=== PATIENT | female | born 1975 | race African-American/Black ===

== ENCOUNTER 2020-12-29 17:54 | Emergency (ER) | payer OTHER ==
[2020-12-29] MEDS ORDERED: MAGNES/ALUMIN/SIMET 30ML UCUP ONE (20:45)
[2020-12-29] MEDS ORDERED: LIDOCAINE VISCOUS 2% SOLN 15 ML UDC ONE (20:46)
[2020-12-29 21:02] LABS: Absolute Lymphocytes (CBC) 3.8 K/uL (0.7-4.9); Basophils % 1.2 % (0-1.3); Hematocrit 41.8 % (36.0-45.0); Lymphocytes % 42.6 % (15.3-44.8); MPV 7.8 fL (7.6-11.3); RBC Red Blood Cell Count 4.86 M/uL (3.86-4.86)
[2020-12-29 21:03] LABS: Protime INR 0.98
[2020-12-29 21:17] LABS: BUN Blood Urea Nitrogen 15 mg/dL (7-18); Bicarbonate 29 mmol/L (21-32); Glucose Level 87 mg/dL (74-106); NT PRO-BNP 11 pg/mL (<125); Potassium 3.6 mmol/L (3.5-5.1); Sodium Level 138 mmol/L (136-145); Troponin (Emerg Dept Use Only) < 0.02 ng/mL (0.0-0.045)
--- NOTE | 2020-12-29 23:08 | ER ---
Nurse's Notes [facility] Name: Keya Rene Age: 45 yrs Sex: Female : 1975 Arrival Date: 12/29/2020 Time: 17:55 Bed 4 Private MD: Diagnosis: Chest pain, unspecified Presentation: 12/29 18:11 Chief complaint: Patient states: Chest pain started this morning. Intermittent, non ca1 radiating. Reports nausea and SOB with chest pains. Coronavirus screen: Client denies travel out of the [place] in the last 14 days. nausea, shortness of breath, Client presents with at least one sign or symptom that may indicate coronavirus-19. Standard/surgical mask placed on the client. Provider contacted for isolation considerations. Ebola Screen: Patient negative for fever greater than or equal to 101.5 degrees Fahrenheit, and additional compatible Ebola Virus Disease symptoms Patient denies exposure to infectious person. Patient denies travel to an Ebola-affected area in the 21 days before illness onset. No symptoms or risks identified at this time. Initial Sepsis Screen: Does the patient meet any 2 criteria? No. Patient's initial sepsis screen is negative. Does the patient have a suspected source of infection? No. Patient's initial sepsis screen is negative. Risk Assessment: Do you want to hurt yourself or someone else? Patient reports no desire to harm self or others. Onset of symptoms was December 29, 2020. 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 - Social history:: Smoking status: Patient/guardian denies using tobacco, Stopped _ months ago 3. - Family history:: not pertinent. - Hospitalizations: : No recent hospitalization is reported. Screenin:52 Abuse screen: Denies threats or abuse. Nutritional screening: No deficits noted. ea Tuberculosis screening: No symptoms or risk factors identified. Fall Risk IV access (20 points). Assessment: 21:04 General: Appears in no apparent distress. Behavior is calm, cooperative. Pain: ea Complains of pain in mid-sternal area Pain does not radiate. Cardiovascular: Patient's skin is warm and dry. Respiratory: Airway is patent Respiratory effort is even, unlabored, Respiratory pattern is regular, symmetrical. Derm: Skin is pink, warm \T\ dry. 22:06 Reassessment: Patient and/or family updated on plan of care and expected duration. Pain ea level reassessed. Patient is alert, oriented x 3, equal unlabored respirations, skin warm/dry/pink. 23:06 Reassessment: Patient and/or family updated on plan of care and expected duration. Pain ea level reassessed. Patient is alert, oriented x 3, equal unlabored respirations, skin warm/dry/pink. 23:21 Reassessment: Patient and/or family updated on plan of care and expected duration. Pain ea level reassessed. Patient is alert, oriented x 3, equal unlabored respirations, skin warm/dry/pink. Discharge instruction given to patient verbalized the understanding of instruction. Pt left ED ambulatory tolerating well. Vital Signs: 18:11 BP 139 / 97; Pulse 79; Resp 18 S; Temp 98.5(TE); Pulse Ox 100% on R/A; Weight 72.57 kg ca1 (R); Height 5 ft. 4 in. (162.56 cm) (R); Pain 7/10; 19:00 BP 124 / 93; Pulse 83; Resp 20; Pulse Ox 100% ; sp 20:53 BP 131 / 93; Pulse 74; Resp 19; Pulse Ox 100% on R/A; ea 21:00 BP 128 / 95; Pulse 64; Resp 18; Pulse Ox 98% ; ea 23:06 BP 120 / 93; Pulse 64; Resp 18; Pulse Ox 100% on R/A; ea 18:11 Body Mass Index 27.46 (72.57 kg, 162.56 cm) ca1 ED Course: 17:55 Patient arrived in ED. ag5 18:13 Triage completed. ca1 18:14 Arm band placed on right wrist. EKG completed in triage. Results shown to MD. ca1 20:14 Bhavik Gould, RN is Primary Nurse. rr5 20:14 Kofi Cherry MD is Attending Physician. rn 20:52 Patient has correct armband on for positive identification. Bed in low position. Call ea light in reach. Side rails up X2. kiln cleaner on. Pulse ox on. NIBP on. 20:52 Inserted saline lock: 20 gauge in right antecubital area, using aseptic technique. ea Blood collected. Patient maintains SpO2 saturation greater than 95% on room air. 21:52 XRAY Chest (1 view) In Process Unspecified. EDMS 22:34 CT Aorta for Dissection In Process Unspecified. EDMS 23:21 No provider procedures requiring assistance completed. IV discontinued, intact, ea bleeding controlled, No redness/swelling at site. Pressure dressing applied. Administered Medications: 20:52 Drug: GI Cocktail without - (Maalox Suspension 30 ml, Lidocaine Liquid 2 % 15 ea ml) Route: PO; 23:05 Follow up: Response: No adverse reaction ea Outcome: 23:07 Discharge ordered by . rn 23:21 Discharged to home ambulatory. ea 23:21 Condition: stable 23:21 Discharge instructions given to patient, Instructed on discharge instructions, follow up and referral plans. Demonstrated understanding of instructions, follow-up care. 23:22 Patient left the ED. ea Signatures: Dispatcher [employer] EDMS Sabina Yap Roman, MD MD rn Antunez, Elena, RN RN ea Roque, Raymond, RN RN rr5 Nataly Bess RN Kassidy Leggett ag5
--- NOTE | 2020-12-29 23:08 | EDPHYS ---
Physician Documentation [facility] Name: Keya Rene Age: 45 yrs Sex: Female : 1975 Arrival Date: 12/29/2020 Time: 17:55 Bed 4 Private MD: ED Physician Kofi Cherry HPI: 12/29 20:34 This 45 yrs old Black Female presents to ER via Ambulatory with complaints of Chest rn Pain. 20:34 The patient or guardian reports chest pain that is located primarily in the mid-sternal rn area. Onset: this morning. The pain radiates to the right shoulder. Associated signs and symptoms: Pertinent positives: None. Pertinent negatives: abdominal pain, cough, headache, lightheadedness, near syncope, palpitations, shortness of breath, syncope, vomiting. The chest pain is described as aching. Duration: The patient or guardian reports multiple episodes, that are intermittent. Modifying factors: The symptoms are alleviated by nothing. the symptoms are aggravated by movement. Severity of pain: At its worst the pain was mild in the emergency department the pain has improved. The patient has not experienced similar symptoms in the past. The patient has not recently seen a physician. Reports chest pain, mid/upper, assoc with right shoulder pain, worse when "doing things", no fever/cough/sob/recent illness. No abd pain/nausea/vomiting. Reports short episodes. Intermittent. Missed her BP meds at 1800. . 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 - Social history:: Smoking status: Patient/guardian denies using tobacco, Stopped _ months ago 3. - Family history:: not pertinent. - Hospitalizations: : No recent hospitalization is reported. ROS: 20:34 Constitutional: Negative for fever, chills, and weight loss, Eyes: Negative for injury, rn pain, redness, and discharge, Neck: Negative for injury, and swelling, Cardiovascular: Negative for palpitations, and edema, Respiratory: Negative for shortness of breath, cough, wheezing, and pleuritic chest pain, Abdomen/GI: Negative for abdominal pain, nausea, vomiting, diarrhea, and constipation, Back: Negative for injury MS/Extremity: Negative for injury and deformity, Skin: Negative for injury, rash, and discoloration, Neuro: Negative for headache, weakness, numbness, tingling, and seizure. Exam: 20:34 Constitutional: This is a well developed, well nourished patient who is awake, alert, rn and in no acute distress. Head/Face: Normocephalic, atraumatic. Eyes: Pupils equal round and reactive to light, extra-ocular motions intact. Periorbital areas with no swelling, redness, or edema. Neck: Trachea midline, no masses palpated Chest/axilla: Normal chest wall appearance and motion. Nontender with no deformity. No lesions are appreciated. Cardiovascular: Regular rate and rhythm. No pulse deficits. Respiratory: No increased work of breathing, no retractions or nasal flaring. Abdomen/GI: soft, non-tender, neg sun Skin: Warm, dry MS/ Extremity: Pulses equal, no cyanosis. Neurovascular intact. Full, normal range of motion. Equal circumference. Neuro: Awake and alert, GCS 15, oriented to person, place, time, and situation. Cranial nerves II-XII grossly intact. Motor strength 5/5 in all extremities. Sensory grossly intact. Vital Signs: 18:11 BP 139 / 97; Pulse 79; Resp 18 S; Temp 98.5(TE); Pulse Ox 100% on R/A; Weight 72.57 kg ca1 (R); Height 5 ft. 4 in. (162.56 cm) (R); Pain 7/10; 19:00 BP 124 / 93; Pulse 83; Resp 20; Pulse Ox 100% ; sp 20:53 BP 131 / 93; Pulse 74; Resp 19; Pulse Ox 100% on R/A; ea 21:00 BP 128 / 95; Pulse 64; Resp 18; Pulse Ox 98% ; ea 23:06 BP 120 / 93; Pulse 64; Resp 18; Pulse Ox 100% on R/A; ea 18:11 Body Mass Index 27.46 (72.57 kg, 162.56 cm) ca1 MDM: 20:14 Patient medically screened. rn 22:03 ED course: Chest pain nearly resolved after GI cocktail, so far rest of bloodwork rn normal, will repeat trop and get ct aorta given persistent hypertension and radiation to right shoulder. . 23:05 Differential diagnosis: acute myocardial infarction, acute pericarditis, coronary rn artery disease chest wall pain, costochondritis, esophagitis, gastritis, gastroesophageal reflux disease (GERD), pleurisy, pneumonia, pneumothorax, thoracic aortic disection. Data reviewed: vital signs, nurses notes, lab test result(s), EKG, radiologic studies, CT scan, plain films, and as a result, I will discharge patient. Counseling: I had a detailed discussion with the patient and/or guardian regarding: the historical points, exam findings, and any diagnostic results supporting the discharge/admit diagnosis, lab results, radiology results, the need for outpatient follow up, to return to the emergency department if symptoms worsen or persist or if there are any questions or concerns that arise at home. 23:06 Special discussion: Based on the patient's history, exam, and Dx evaluation, there is rn no indication for emergent intervention or inpatient Tx. It is understood by the patient/guardian that if the Sx's persist or worsen they need to return immediately for re-evaluation. I discussed with the patient/guardian in detail that at this point there is no indication for admission to the hospital. It is understood, however, that if the symptoms persist or worsen the patient needs to return immediately for re-evaluation. ED course: CT aorta negative, repeat trop neg, ecg without ischemia, pain improved markedly with GI cocktail, will dc home with return precautions and pcp f/u. Also recommend outpt stress test and cardiology f/u as needed if symptoms continue.. 12/29 20:55 Order name: Basic Metabolic Panel; Complete Time: 21:45 EDMS 12/29 20:24 Order name: XRAY Chest (1 view) rn 12/29 20:55 Order name: Troponin (Emerg Dept Use Only); Complete Time: 21:45 EDMS 12/29 20:55 Order name: NT PRO-BNP; Complete Time: 21:45 EDMS 12/29 20:55 Order name: CBC with Automated Diff; Complete Time: 21:45 EDMS 12/29 20:55 Order name: Protime (+INR); Complete Time: 21:45 EDMS 12/29 22:02 Order name: CT Aorta for Dissection rn 12/29 22:02 Order name: Troponin (emerg Dept Use Only); Complete Time: 23:03 rn 12/29 18:15 Order name: EKG; Complete Time: 18:16 ca1 12/29 18:15 Order name: EKG - Nurse/Tech; Complete Time: 18:17 ca1 12/29 20:24 Order name: Cardiac monitoring; Complete Time: 20:52 rn 12/29 20:24 Order name: IV Saline Lock; Complete Time: 20:52 rn 12/29 20:24 Order name: Labs collected and sent; Complete Time: 20:52 rn 12/29 20:24 Order name: O2 Per Protocol; Complete Time: 20:43 rn 12/29 20:24 Order name: O2 Sat Monitoring; Complete Time: 20:43 rn Administered Medications: 20:52 Drug: GI Cocktail without - (Maalox Suspension 30 ml, Lidocaine Liquid 2 % 15 ea ml) Route: PO; 23:05 Follow up: Response: No adverse reaction ea Disposition: 12/29/20 23:07 Discharged to Home. Impression: Chest pain, unspecified. - Condition is Stable. - Discharge Instructions: Nonspecific Chest Pain. - Medication Reconciliation Form, Thank You Letter, Antibiotic Education, Prescription Opioid Use form. - Follow up: Private Physician; When: As needed; Reason: Recheck today's complaints, Re-evaluation by your physician. - Problem is new. - Symptoms have improved. Signatures: Dispatcher [employer] EDMS Kofi Cherry MD MD rn Antunez, Elena RN Nataly Chiu ea RN RN ca1 Corrections: (The following items were deleted from the chart) 21:50 21:19 PROTIME (+INR)+COAG.LAB.BRZ ordered. EDMS EDMS 21:52 21:19 BASIC METABOLIC PANEL+C.LAB.BRZ ordered. EDMS EDMS 21:52 21:19 CBC+H.LAB.BRZ ordered. EDMS EDMS 21:52 21:19 PROBNP+C.LAB.BRZ ordered. EDAZ EDMS 21:52 21:19 TROPONIN (EMERG DEPT USE ONLY)+C.LAB.BRZ ordered. EDAZ EDMS 23:22 23:07 12/29/2020 23:07 Discharged to Home. Impression: Chest pain, unspecified. ea Condition is Stable. Forms are Medication Reconciliation Form, Thank You Letter, Antibiotic Education, Prescription Opioid Use. Follow up: Private Physician; When: As needed; Reason: Recheck today's complaints, Re-evaluation by your physician. Problem is new. Symptoms have improved. rn
[2020-12-30 03:19] VITALS: TEMP 98.5
[2020-12-30 03:24] VITALS: BP 120/93; O2SAT 100
--- NOTE | 2020-12-30 12:55 | EKG ---
Test Date: 2020-12-29 Test Time: 18:18:29 Procurement Specialist: LAUREN MEASUREMENT RESULTS: Intervals: Rate: 84 MO: 160 QRSD: 86 QT: 376 QTc: 444 [place]: P: 68 MO: 160 QRS: 57 T: 41 INTERPRETIVE STATEMENTS: Normal sinus rhythm Normal ECG No previous ECG available for comparison Electronically Signed On 12-30-20 12:53:15 HOSPITALITY HOUSEKEEPER by Jaguar Frankel
--- NOTE | 2020-12-30 16:15 | RAD REPORT ---
EXAM DESCRIPTION: CT Angiography Chest, Abdomen and Pelvis With Intravenous Contrast CLINICAL HISTORY: The patient is 45 years old and is Female; CHEST PAIN TECHNIQUE: Axial computed tomographic angiography images of the chest, abdomen and pelvis with intra venous contrast. Sagittal and coronal reformatted images were created and reviewed. This CT exam was performed using one or more of the following dose reduction techniques: automated exposure cont rol, adjustment of the mA and/or kV according to patient size, and/or use of iterative reconstruction technique. MIP reconstructed images were created and reviewed. COMPARISON: No relevant prior studies available. FINDINGS: VASCULATURE: Aorta: Minimal atheromatous plaque seen at the inferior abdominal aorta. No significant stenosis. No aortic aneurysm. No dissection. Pulmonary arteries: Unremarkable as visualized. No pulmonary embolism is identified. Great vessels of aortic arch: No acute findings. No dissection. No arterial occlusion or sign ificant stenosis. Celiac trunk and mesenteric arteries: No acute findings. No occlusion or significant stenosis. Renal arteries: No acute findings. No occlusion or significant stenosis. Iliac arteries: No acute findings. No occlusion or significant stenosis. CHEST: Lungs: Unremarkable. No mass. No consolidation. Pleural space: Unremarkable. No significant effusion. No pneumothorax. Heart: Unremarkable. No cardiomegaly. No significant pericardial effusion. ABDOMEN: Liver: Unremarkable. No mass. Gallbladder and bile ducts: Unremarkable. No calcified stones. No ductal dilation. Pancreas: Unremarkable. No ductal dilation. No mass. Spleen: Unremarkable. No splenomegaly. Adrenals: Unremarkable. No mass. Kidneys and ureters: Unremarkable. No hydronephrosis. No solid mass. Stomach and bowel: Unremarkable. No obstruction. No mucosal thickening. PELVIS: Appendix: No findings to suggest acute appendicitis. Bladder: Unremarkable. No mass. Reproductive: Unremarkable as visualized. CHEST, ABDOMEN and PELVIS: Intraperitoneal space: Unremarkable. No significant fluid collection. No free air. Bones/joints: No acute fracture. No dislocation. Soft tissues: Unremarkable. Lymph nodes: Unremarkable. No enlarged lymph nodes. IMPRESSION: 1. No acute vascular abnormality. No aortic dissection. 2. No acute findings seen within the chest, abdomen or pelvis. Electronically signed by: Kyle Hartman MD 12/29/2020 10:45 PM SSN/SSBN ASSISTANT NAVIGATOR Due to temporary technical issues with the PACS/Fluency reporting system, reports are being signed by the in house radiologists without review as a courtesy to insure prompt reporting. The interpreting radiologist is fully responsible for the content of the report.
--- NOTE | 2020-12-30 16:17 | RAD REPORT ---
EXAM DESCRIPTION: Chest Single View CLINICAL HISTORY: 5 years Female, CHEST PAIN COMPARISON: None FINDINGS/IMPRESSION: No focal lung consolidation. No pleural effusion. No pneumothorax. Cardiomediastinal silhouette is within normal limits. Mild vascular congestion and interstitial edema. No acute osseous abnormality. Electronically signed by: Dani Parmar DO 12/29/2020 10:03 PM DRAPERY ROD ASSEMBLER Due to temporary technical issues with the PACS/Fluency reporting system, reports are being signed by the in house radiologists without review as a courtesy to insure prompt reporting. The interpreting radiologist is fully responsible for the content of the report.
== END 2020-12-29 23:22 | disposition home or self-care (01) ==
LOC: ER 17:54
DX: R07.9 Chest pain, unspecified (principal)
CPT/HCPCS: 93005; 85025; 80048; 36415; 85610; 84484 ×2; 83880; 71275; 74175; 71045; 99285; Q9967

== ENCOUNTER 2021-05-31 17:50 | Emergency (ER) | payer OTHER ==
--- OUTSIDE RECORDS SUMMARY | 2021-05-31 17:58 | XMS REPORT | Continuity of Care Document ---
:1975 Author Organization [facility] t Address [address] [place] [address] Care Team Providers Name Role Phone Unavailable Unavailable Unavailable Payers Payer Name Policy Type Policy Number Effective Date Expiration Date S ource Problems This patient has no known problems. Allergies, Adverse Reactions, Alerts Allergy Allergy Status Severity Reaction(s) Onset Inactive Treating Comm ents Source Name Type Date Date Clinician No Known DA Active U 2017-1 [facility] 2-26 Clear s 00:00: Tobias 00 [facility] No Known DA Active U 2017-0 [facility] Allergie 6-04 Pearlan s 00:00: d 00 [facility] Medications This patient has no known medications. Procedures This patient has no known procedures. Encounters Start End Encounter Admission Attending Care Care Encounter Source Date/Time Date/Time Type Type Clinicians Facility Department ID 2020-03-11 2020-03-11 Emergency E [facility]BL [facility] [id number] [facility]BL 20:04:00 20:04:00 2020-03-11 2020-03-11 Emergency E [facility] 7504 [facility]BL 12:21:00 12:21:00 2020-02-05 2020-02-05 Emergency E [facility] [id number] [facility]BL 08:43:00 08:43:00 Results Test Description Test Time Test Comments Results Result Comments Source COVID 19 Asymptomatic IH AG 2020-06-03 04:50:00 Test Item Value Reference Range Interpretation Comme nts COVID 19 Asymptomatic IH AG NEGATIVE Negative Per mental retardation aide, negative (test code = COVNONPUIAG) re sults should be treated aspresumptive a nd, if inconsistent wi th clinical signs andsymptoms or necessary for patient managem ent, should betested with a n alternative molecular assay . Negative resultsdo not p reclude SARS-CoV-2 infection and s hould not be usedas the sole basis for patient management deci sions. Negative results should be considered in the context of apatient's recent exposures, hist ory, presence of clinicalsigns a nd symptoms consistent with COVID-19. - XR CHEST 2 [id number] 04:02:00 Name: MARYCRUZ RICHARD [place] : 1975 Age/S: 45 / F [id number] Unit #: [id number] Loc: [place] [address] Phys: Shimon Santamaria MD Acct: [id number] Dis Date: Status: REG ER PHONE #: [phone] Exam Date: 06/03/2020 035 FAX #: Reason: sob EXAMS: CPT: [id number] XR CHEST 2 V 00171 Fluoro Time: DAP (Gy m2): Air Kerma (mGy): EXAMINATION: - XR CHEST 2 V LOCATION: 1 INDICATION/CLINICAL HISTORY: sob COMPARISON: Chest x-ray 02/08/2019. TECHNIQUE: Frontal and lateral views of the chest. FINDINGS: Lines/device:None. Cardiomediastinal silhouette: Normal. Pulmonary vasculature: Not congested. Lungs/pleura: No consolidation, pneumothorax or pleural effusion. Upper abdomen: Unremarkable. Regional osseous structures: Intact. IMPRESSION: No acute cardiopulmonary findings. Electronica lly Signed by Luna Petersen on 06/03/2020 at 0402 Reported and signed by:Iqra Petersen M.D. CC: PAGE 1 Signed Report Name: MARYCRUZ RICHARD [place] : 1975 Age/S: 45 / F [address] Unit#: [id number] Loc: [place] [address] Phys: Shimon Santamaria MD Acct: [id number] Dis Date: Status: REG ER PHONE #: [phone] Exam Date: 06/03/2020 0355 FAX #: Reason: sob EXAMS: CPT: [id number] XR CHEST 2 V [id number] Fluoro Time: DAP (Gy m2): Air Kerma (mGy): <Continued> Technologist: Blayne Hu RT(R) Trnscb Date/Time: 06/03/2020 (401) [email or web address] Orig Print D/T: S: 06/03/2020 (404) PAGE 2 Signed ReportCBC W/AUTO [id number] 12:08:00 Test Item Value Reference Range Interpretation Comments WHITE BLOOD CELL (test code = 13.8 K/mm3 3.5-11.0 H WBC) RED BLOOD CELL (test code = RBC) 5.41 M/mm3 4.70-6.10 N HEMOGLOBIN (test code = HGB) 15.6 G/DL 10.4-14.9 H HEMATOCRIT (test code = HCT) 47.4 % 31.5-44.1 H MEAN CELL VOLUME (test code = 87.6 Fl 84.5-98.6 N MCV) MEAN CELL HGB (test code = MCH) 28.8 pg 27.0-34.2 N MEAN CELL HGB CONCETRATION (test 32.9 G/DL 31.5-34.0 N code = MCHC) RED CELL DISTRIBUTION WIDTH 14.6 SD 11.5-14.5 H (test code = RDW) PLATELET COUNT (test code = PLT) 324.0 K/mm3 150-450 N MEAN PLATELET VOLUME (test code 9.10 fL 7.0-10.5 N = MPV) MANUAL DIFF REQUIRED (test code YES DIFF/SCN CRITERIA = MDIFF) WBC [id number] 12:08:00 Test Item Value Reference Range Interpretation Comments SEGMENTED NEUTROPHILS (test code = SEG) 62 % 40-75 N BAND NEUTROPHIL (test code = BAND) 2 % 0-8 N LYMPHOCYTE (test code = LYMPH) 22 % 18.7-40.6 N ATYPICAL LYMPH (test code = ALYMPH) 4 % 0-0 H MONOCYTE (test code = MON) 10 % 3.8-11.4 N CBC W/AUTO [id number] 12:07:00 Test Item Value Reference Range Interpretation Comments WHITE BLOOD CELL (test code = 13.8 K/mm3 3.5-11.0 H WBC) RED BLOOD CELL (test code = RBC) 5.41 M/mm3 4.70-6.10 N HEMOGLOBIN (test code = HGB) 15.6 G/DL 10.4-14.9 H HEMATOCRIT (test code = HCT) 47.4 % 31.5-44.1 H MEAN CELL VOLUME (test code = 87.6 Fl 84.5-98.6 N MCV) MEAN CELL HGB (test code = MCH) 28.8 pg 27.0-34.2 N MEAN CELL HGB CONCETRATION (test 32.9 G/DL 31.5-34.0 N code = MCHC) RED CELL DISTRIBUTION WIDTH 14.6 SD 11.5-14.5 H (test code = RDW) PLATELET COUNT (test code = PLT) 324.0 K/mm3 150-450 N MEAN PLATELET VOLUME (test code 9.10 fL 7.0-10.5 N = MPV) MANUAL DIFF REQUIRED (test code YES DIFF/SCN CRITERIA = MDIFF) WBC [id number] 12:07:00 Test Item Value Reference Range Interpretation Comments SEGMENTED NEUTROPHILS (test code = SEG) % 40-75 LYMPHOCYTE (test code = LYMPH) % 18.7-40.6 CBC W/AUTO [id number] 12:07:00 Test Item Value Reference Range Interpretation Comments WHITE BLOOD CELL (test code = 13.8 K/mm3 3.5-11.0 H WBC) RED BLOOD CELL (test code = RBC) 5.41 M/mm3 4.70-6.10 N HEMOGLOBIN (test code = HGB) 15.6 G/DL 10.4-14.9 H HEMATOCRIT (test code = HCT) 47.4 % 31.5-44.1 H MEAN CELL VOLUME (test code = 87.6 Fl 84.5-98.6 N MCV) MEAN CELL HGB (test code = MCH) 28.8 pg 27.0-34.2 N MEAN CELL HGB CONCETRATION (test 32.9 G/DL 31.5-34.0 N code = MCHC) RED CELL DISTRIBUTION WIDTH 14.6 SD 11.5-14.5 H (test code = RDW) PLATELET COUNT (test code = PLT) 324.0 K/mm3 150-450 N MEAN PLATELET VOLUME (test code 9.10 fL 7.0-10.5 N = MPV) MANUAL DIFF REQUIRED (test code YES DIFF/SCN CRITERIA = MDIFF) WBC [id number] 12:07:00 Test Item Value Reference Range Interpretation Comments SEGMENTED NEUTROPHILS (test code = SEG) % 40-75 LYMPHOCYTE (test code = LYMPH) % 18.7-40.6 BASIC METABOLIC [id number] 08:34:00 Test Item Value Reference Range Interpretation Comments SODIUM (test code = NA) 136 mmol/L 134-147 N POTASSIUM (test code = 3.4 mmol/L 3.4-5.0 N K) CHLORIDE (test code = 101 mmol/L 100-108 N CL) CARBON DIOXIDE (test 27 mmol/L 21-32 N code = CO2) ANION GAP (test code = 8.0 GAP calc 4.0-15.0 N GAP) GLUCOSE (test code = 102 MG/DL 70-110 N GLU) BLOOD UREA NITROGEN 16 MG/DL 7-18 N (test code = BUN) GLOMERULAR FILTRATION >=60 max estimate >60 RATE (test code = GFR) estGFR CREATININE (test code = 0.8 MG/DL 0.6-1.0 N CREAT) CALCIUM (test code = CA) 8.9 MG/DL 8.5-10.1 N CBC W/AUTO [id number] 08:14:00 Test Item Value Reference Range Interpretation Comments WHITE BLOOD CELL (test code = 13.8 K/mm3 3.5-11.0 H WBC) RED BLOOD CELL (test code = RBC) 5.41 M/mm3 4.70-6.10 N HEMOGLOBIN (test code = HGB) 15.6 G/DL 10.4-14.9 H HEMATOCRIT (test code = HCT) 47.4 % 31.5-44.1 H MEAN CELL VOLUME (test code = 87.6 Fl 84.5-98.6 N MCV) MEAN CELL HGB (test code = MCH) 28.8 pg 27.0-34.2 N MEAN CELL HGB CONCETRATION (test 32.9 G/DL 31.5-34.0 N code = MCHC) RED CELL DISTRIBUTION WIDTH (test 14.6 SD 11.5-14.5 H code = RDW) PLATELET COUNT (test code = PLT) 324.0 K/mm3 150-450 N MEAN PLATELET VOLUME (test code = 9.10 fL 7.0-10.5 N MPV) NEUTROPHIL % (test code = NT%) % 40-76 N LYMPHOCYTE % (test code = LY%) % 20.5-51.1 N MONOCYTE % (test code = MO%) % 1.7-9.3 H EOSINOPHIL % (test code = EO%) % 0.0-6.0 N BASOPHIL % (test code = BA%) % 0.0-2.0 N NEUTROPHIL # (test code = NT#) K/mm3 1.8-7.6 H LYMPHOCYTE # (test code = LY#) K/mm3 0.6-3.2 N MONOCYTE # (test code = MO#) K/mm3 0.3-1.1 H EOSINOPHIL # (test code = EO#) K/mm3 0.0-0.4 N BASOPHIL # (test code = BA#) K/mm3 0.0-0.1 N MANUAL DIFF REQUIRED (test code = DIFF/SCN CRITERIA MDIFF) CBC W/AUTO [id number] 08:34:00 Test Item Value Reference Range Interpretation Comments WHITE BLOOD CELL (test code = 26.9 K/mm3 3.5-11.0 H WBC) RED BLOOD CELL (test code = RBC) 4.74 M/mm3 4.70-6.10 N HEMOGLOBIN (test code = HGB) 13.8 G/DL 10.4-14.9 N HEMATOCRIT (test code = HCT) 42.0 % 31.5-44.1 N MEAN CELL VOLUME (test code = 88.6 Fl 84.5-98.6 N MCV) MEAN CELL HGB (test code = MCH) 29.1 pg 27.0-34.2 N MEAN CELL HGB CONCETRATION (test 32.9 G/DL 31.5-34.0 N code = MCHC) RED CELL DISTRIBUTION WIDTH 14.7 SD 11.5-14.5 H (test code = RDW) PLATELET COUNT (test code = PLT) 289.0 K/mm3 150-450 N MEAN PLATELET VOLUME (test code 9.20 fL 7.0-10.5 N = MPV) MANUAL DIFF REQUIRED (test code YES DIFF/SCN CRITERIA = MDIFF) WBC [id number] 08:34:00 Test Item Value Reference Range Interpretation Comments SEGMENTED NEUTROPHILS (test code = SEG) % 40-75 LYMPHOCYTE (test code = LYMPH) % 18.7-40.6 CBC W/AUTO [id number] 08:34:00 Test Item Value Reference Range Interpretation Comments WHITE BLOOD CELL (test code = 26.9 K/mm3 3.5-11.0 H WBC) RED BLOOD CELL (test code = RBC) 4.74 M/mm3 4.70-6.10 N HEMOGLOBIN (test code = HGB) 13.8 G/DL 10.4-14.9 N HEMATOCRIT (test code = HCT) 42.0 % 31.5-44.1 N MEAN CELL VOLUME (test code = 88.6 Fl 84.5-98.6 N MCV) MEAN CELL HGB (test code = MCH) 29.1 pg 27.0-34.2 N MEAN CELL HGB CONCETRATION (test 32.9 G/DL 31.5-34.0 N code = MCHC) RED CELL DISTRIBUTION WIDTH 14.7 SD 11.5-14.5 H (test code = RDW) PLATELET COUNT (test code = PLT) 289.0 K/mm3 150-450 N MEAN PLATELET VOLUME (test code 9.20 fL 7.0-10.5 N = MPV) MANUAL DIFF REQUIRED (test code YES DIFF/SCN CRITERIA = MDIFF) WBC [id number] 08:34:00 Test Item Value Reference Range Interpretation Comments SEGMENTED NEUTROPHILS (test 88 % 40-75 H code = SEG) BAND NEUTROPHIL (test code 5 % 0-8 N = BAND) LYMPHOCYTE (test code = 6 % 18.7-40.6 L LYMPH) MONOCYTE (test code = MON) 1 % 3.8-11.4 L PLATELET ESTIMATE (test ADEQUATE THOUSAND ADEQUATE code = PLTEST) PLATELET MORPHOLOGY (test NORMAL code = PLTMORPH) CBC W/AUTO [id number] 08:34:00 Test Item Value Reference Range Interpretation Comments WHITE BLOOD CELL (test code = 26.9 K/mm3 3.5-11.0 H WBC) RED BLOOD CELL (test code = RBC) 4.74 M/mm3 4.70-6.10 N HEMOGLOBIN (test code = HGB) 13.8 G/DL 10.4-14.9 N HEMATOCRIT (test code = HCT) 42.0 % 31.5-44.1 N MEAN CELL VOLUME (test code = 88.6 Fl 84.5-98.6 N MCV) MEAN CELL HGB (test code = MCH) 29.1 pg 27.0-34.2 N MEAN CELL HGB CONCETRATION (test 32.9 G/DL 31.5-34.0 N code = MCHC) RED CELL DISTRIBUTION WIDTH 14.7 SD 11.5-14.5 H (test code = RDW) PLATELET COUNT (test code = PLT) 289.0 K/mm3 150-450 N MEAN PLATELET VOLUME (test code 9.20 fL 7.0-10.5 N = MPV) MANUAL DIFF REQUIRED (test code YES DIFF/SCN CRITERIA = MDIFF) WBC [id number] 08:34:00 Test Item Value Reference Range Interpretation Comments SEGMENTED NEUTROPHILS (test code = SEG) % 40-75 LYMPHOCYTE (test code = LYMPH) % 18.7-40.6 BASIC METABOLIC [id number] 06:23:00 Test Item Value Reference Range Interpretation Comments SODIUM (test code = NA) 138 mmol/L 134-147 N POTASSIUM (test code = 3.5 mmol/L 3.4-5.0 N K) CHLORIDE (test code = 105 mmol/L 100-108 N CL) CARBON DIOXIDE (test 24 mmol/L 21-32 N code = CO2) ANION GAP (test code = 9.0 GAP calc 4.0-15.0 N GAP) GLUCOSE (test code = 114 MG/DL 70-110 H GLU) BLOOD UREA NITROGEN 11 MG/DL 7-18 N (test code = BUN) GLOMERULAR FILTRATION >=60 max estimate >60 RATE (test code = GFR) estGFR CREATININE (test code = 0.7 MG/DL 0.6-1.0 N CREAT) CALCIUM (test code = CA) 8.8 MG/DL 8.5-10.1 N CBC W/AUTO [id number] 05:59:00 Test Item Value Reference Range Interpretation Comments WHITE BLOOD CELL (test code = 26.9 K/mm3 3.5-11.0 H WBC) RED BLOOD CELL (test code = RBC) 4.74 M/mm3 4.70-6.10 N HEMOGLOBIN (test code = HGB) 13.8 G/DL 10.4-14.9 N HEMATOCRIT (test code = HCT) 42.0 % 31.5-44.1 N MEAN CELL VOLUME (test code = 88.6 Fl 84.5-98.6 N MCV) MEAN CELL HGB (test code = MCH) 29.1 pg 27.0-34.2 N MEAN CELL HGB CONCETRATION (test 32.9 G/DL 31.5-34.0 N code = MCHC) RED CELL DISTRIBUTION WIDTH (test 14.7 SD 11.5-14.5 H code = RDW) PLATELET COUNT (test code = PLT) 289.0 K/mm3 150-450 N MEAN PLATELET VOLUME (test code = 9.20 fL 7.0-10.5 N MPV) NEUTROPHIL % (test code = NT%) % 40-76 H LYMPHOCYTE % (test code = LY%) % 20.5-51.1 L MONOCYTE % (test code = MO%) % 1.7-9.3 N EOSINOPHIL % (test code = EO%) % 0.0-6.0 N BASOPHIL % (test code = BA%) % 0.0-2.0 N NEUTROPHIL # (test code = NT#) K/mm3 1.8-7.6 H LYMPHOCYTE # (test code = LY#) K/mm3 0.6-3.2 N MONOCYTE # (test code = MO#) K/mm3 0.3-1.1 H EOSINOPHIL # (test code = EO#) K/mm3 0.0-0.4 N BASOPHIL # (test code = BA#) K/mm3 0.0-0.1 N MANUAL DIFF REQUIRED (test code = DIFF/SCN CRITERIA MDIFF) - XR CHEST 1 [id number] 12:33:00 Name: MARYCRUZ RICHARD [facility] : 1975 Age/S: 43 / F [address] Unit #: [id number] Loc: [place] [address] Phys: Lei Fairchild MD Acct: [id number] Dis Date: Status: ADM IN PHONE #: [phone] Exam Date: 02/08/2019 1214 FAX #: Reason: SOB EXAMS: CPT: [id number] XR CHEST 1 V 79811 Fluoro Time: DAP (Gy m2): Air Kerma (mGy): C3 TIME OF STUDY: 02/08/2019 10:59 AM REASON FOR EXAM: SOB COMPARISON: February 07, 2019 FINDINGS: AP view of the chest was obtained. Lungs: Relatively unchanged appearance of small right basilar opacity. Pleura: No pleural effusion or pneumothorax. Heart and Mediastinum: Normal cardiomediastinal silhouette and great vessels. Bones: Normal regional skeletal structures. IMPRESSION: 1. Small right basilar opacity, unchanged. at 1233 Reported and signed by: Ronnie Mathis M.D. CC: Brea Coburn MD; Lei Fairchild MD; Addison Durham MD PAGE 1 Signed Report Name: MARYCRUZ RICHARD : 1975 Age/S: 43 / F [address] Unit #: [id number] Loc: [place] [address] Phys: Lei Fairchild MD Acct: [id number] Dis Date: Status: ADM IN PHONE #: [phone] Exam Date: 02/08/2019 1214 FAX #: Reason: SOB EXAMS: CPT: [id number] XR CHEST 1 V [id number] Fluoro Time: DAP (Gy m2): Air Kerma (mGy): <Continued> Technologist: Solomon Kothari, RT(R)(CT) Trnscb Date/Time: 02/08/2019 (1233) [email or web address] Orig Print D/T: S: 02/08/2019 (2068) PAGE 2 Signed ReportCBC W/AUTO [id number] 08:15:00 Test Item Value Reference Range Interpretation Comments WHITE BLOOD CELL (test 27.7 K/mm3 3.5-11.0 H code = WBC) RED BLOOD CELL (test 4.36 M/mm3 4.70-6.10 L code = RBC) HEMOGLOBIN (test code 13.0 G/DL 10.4-14.9 N = HGB) HEMATOCRIT (test code 38.5 % 31.5-44.1 N = HCT) MEAN CELL VOLUME (test 88.3 Fl 84.5-98.6 N code = MCV) MEAN CELL HGB (test 29.8 pg 27.0-34.2 N code = MCH) MEAN CELL HGB 33.8 G/DL 31.5-34.0 N CONCETRATION (test code = MCHC) RED CELL DISTRIBUTION 14.5 SD 11.5-14.5 N WIDTH (test code = RDW) PLATELET COUNT (test 272.0 K/mm3 150-450 N code = PLT) MEAN PLATELET VOLUME 9.80 fL 7.0-10.5 N (test code = MPV) NEUTROPHIL % (test 91.9 % 40-76 H code = NT%) LYMPHOCYTE % (test 5.1 % 20.5-51.1 L code = LY%) MONOCYTE % (test code 3.0 % 1.7-9.3 N = MO%) EOSINOPHIL % (test 0.0 % 0.0-6.0 N code = EO%) BASOPHIL % (test code 0.0 % 0.0-2.0 N = BA%) NEUTROPHIL # (test 25.43 K/mm3 1.8-7.6 H code = NT#) LYMPHOCYTE # (test 1.4 K/mm3 0.6-3.2 N code = LY#) MONOCYTE # (test code 0.8 K/mm3 0.3-1.1 N = MO#) EOSINOPHIL # (test 0.0 K/mm3 0.0-0.4 N code = EO#) BASOPHIL # (test code 0.0 K/mm3 0.0-0.1 N = BA#) MANUAL DIFF REQUIRED NO DIFF/SCN CRITERIA SLIDE R SAMMYW (test code = MDIFF) CONSISTA NT WITH AUTO DIFFERENTIAL. BASIC METABOLIC [id number] 05:03:00 Test Item Value Reference Range Interpretation Comments SODIUM (test code = NA) 138 mmol/L 134-147 N POTASSIUM (test code = 3.7 mmol/L 3.4-5.0 N K) CHLORIDE (test code = 107 mmol/L 100-108 N CL) CARBON DIOXIDE (test 22 mmol/L 21-32 N code = CO2) ANION GAP (test code = 9.0 GAP calc 4.0-15.0 N GAP) GLUCOSE (test code = 131 MG/DL 70-110 H GLU) BLOOD UREA NITROGEN 10 MG/DL 7-18 N (test code = BUN) GLOMERULAR FILTRATION >=60 max estimate >60 RATE (test code = GFR) estGFR CREATININE (test code = 0.7 MG/DL 0.6-1.0 N CREAT) CALCIUM (test code = CA) 8.5 MG/DL 8.5-10.1 N CBC W/AUTO [id number] 04:57:00 Test Item Value Reference Range Interpretation Comments WHITE BLOOD CELL (test code = 27.7 K/mm3 3.5-11.0 H WBC) RED BLOOD CELL (test code = RBC) 4.36 M/mm3 4.70-6.10 L HEMOGLOBIN (test code = HGB) 13.0 G/DL 10.4-14.9 N HEMATOCRIT (test code = HCT) 38.5 % 31.5-44.1 N MEAN CELL VOLUME (test code = 88.3 Fl 84.5-98.6 N MCV) MEAN CELL HGB (test code = MCH) 29.8 pg 27.0-34.2 N MEAN CELL HGB CONCETRATION (test 33.8 G/DL 31.5-34.0 N code = MCHC) RED CELL DISTRIBUTION WIDTH (test 14.5 SD 11.5-14.5 N code = RDW) PLATELET COUNT (test code = PLT) 272.0 K/mm3 150-450 N MEAN PLATELET VOLUME (test code = 9.80 fL 7.0-10.5 N MPV) NEUTROPHIL % (test code = NT%) % 40-76 H LYMPHOCYTE % (test code = LY%) % 20.5-51.1 L MONOCYTE % (test code = MO%) % 1.7-9.3 N EOSINOPHIL % (test code = EO%) % 0.0-6.0 N BASOPHIL % (test code = BA%) % 0.0-2.0 N NEUTROPHIL # (test code = NT#) K/mm3 1.8-7.6 H LYMPHOCYTE # (test code = LY#) K/mm3 0.6-3.2 N MONOCYTE # (test code = MO#) K/mm3 0.3-1.1 N EOSINOPHIL # (test code = EO#) K/mm3 0.0-0.4 N BASOPHIL # (test code = BA#) K/mm3 0.0-0.1 N MANUAL DIFF REQUIRED (test code = DIFF/SCN CRITERIA MDIFF) PROCALCITONIN (PCT)2019-02-08 03:05:00 Test Item Value Reference Range Interpretation Comments PROCALCITONIN (PCT) < 0.05 ng/mL 0.00-0.05 N PROCALCI TONIN (PCT) (test code = PROCAL) NORMAL RANGE (ADULT): <0.05 NG/ML. * a concentration < 0.5 ng/mL represent s a low risk of severe sepsis and/or septic s hock.* a concentration >2 ng/mL represent s a high risk of se patti sepsis and/or s eptic shock.Neverthel ess, concentrations <0.5 ng/mL do not ex clude aninfection, on account of loca lized infections (withoutsystemi c signs) which ca n be associated with such lowconcentratio ns, or a systemic infe ction in its initials tages (< 6 hours). Furthermore, in creased procalcitoninca n occur without infecti on. PCT concentrations between 0.5and 2.0 ng/m L should be inter preted taking into acc ount thepatient's hi story. It is recommend ed to retest PCT with in6-24 hours if any concentrations <2 ng/mL are obtai nelida. PROCALCITONIN (PCT)2019-02-08 03:05:00 Test Item Value Reference Range Interpretation Comments PROCALCITONIN (PCT) < 0.05 ng/mL 0.00-0.05 PROCALCI TONIN (PCT) (test code = PROCAL) NORMAL RANGE (ADULT): <0.05 NG/ML. * a concentration < 0.5 ng/mL represent s a low risk of severe sepsis and/or septic s hock.* a concentration >2 ng/mL represent s a high risk of se patti sepsis and/or s eptic shock.Neverthel ess, concentrations <0.5 ng/mL do not ex clude aninfection, on account of loca lized infections (withoutsystemi c signs) which ca n be associated with such lowconcentratio ns, or a systemic infe ction in its initials tages (< 6 hours). Furthermore, in creased procalcitoninca n occur without infecti on. PCT concentrations between 0.5and 2.0 ng/m L should be inter preted taking into acc ount thepatient's hi story. It is recommend ed to retest PCT with in6-24 hours if any concentrations <2 ng/mL are obtai nelida. COMPREHENSIVE METABOLIC [id number] 08:59:00 Test Item Value Reference Range Interpretation Comments SODIUM (test code = NA) 140 mmol/L 134-147 N POTASSIUM (test code = 3.6 mmol/L 3.4-5.0 N K) CHLORIDE (test code = 108 mmol/L 100-108 N CL) CARBON DIOXIDE (test 23 mmol/L 21-32 N code = CO2) ANION GAP (test code = 9.0 GAP calc 4.0-15.0 N GAP) GLUCOSE (test code = 110 MG/DL 70-110 N GLU) BLOOD UREA NITROGEN 13 MG/DL 7-18 N (test code = BUN) GLOMERULAR FILTRATION >=60 max estimate >60 RATE (test code = GFR) estGFR CREATININE (test code = 0.7 MG/DL 0.6-1.0 N CREAT) TOTAL PROTEIN (test code 7.4 G/DL 6.4-8.2 N = PROT) ALBUMIN (test code = 3.4 G/DL 3.4-5.0 N ALB) GLOBULIN (test code = 4.0 GM/dL GLOB) ALBUMIN/GLOBULIN RATIO 0.9 RATIO 1.2-2.2 L (test code = A/G) CALCIUM (test code = CA) 8.7 MG/DL 8.5-10.1 N BILIRUBIN TOTAL (test 0.20 MG/DL 0.2-1.2 N code = BILT) SGOT/AST (test code = 9 Unit/L 15-37 L AST) SGPT/ALT (test code = 11 Unit/L 12-78 L ALT) ALKALINE PHOSPHATASE 63 Unit/L 45-117 N TOTAL (test code = ALKP) COMPREHENSIVE METABOLIC [id number] 08:53:00 Test Item Value Reference Range Interpretation Comments SODIUM (test code = NA) 140 mmol/L 134-147 N POTASSIUM (test code = K) 3.6 mmol/L 3.4-5.0 N CHLORIDE (test code = CL) 108 mmol/L 100-108 N CARBON DIOXIDE (test code = CO2) 23 mmol/L 21-32 N ANION GAP (test code = GAP) 9.0 GAP calc 4.0-15.0 N GLUCOSE (test code = GLU) 110 MG/DL 70-110 N BLOOD UREA NITROGEN (test code = 13 MG/DL 7-18 N BUN) GLOMERULAR FILTRATION RATE (test estGFR >60 code = GFR) CREATININE (test code = CREAT) MG/DL 0.6-1.0 TOTAL PROTEIN (test code = PROT) G/DL 6.4-8.2 ALBUMIN (test code = ALB) G/DL 3.4-5.0 GLOBULIN (test code = GLOB) GM/dL ALBUMIN/GLOBULIN RATIO (test RATIO 1.2-2.2 code = A/G) CALCIUM (test code = CA) 8.7 MG/DL 8.5-10.1 N BILIRUBIN TOTAL (test code = MG/DL 0.2-1.2 BILT) SGOT/AST (test code = AST) Unit/L 15-37 SGPT/ALT (test code = ALT) Unit/L 12-78 ALKALINE PHOSPHATASE TOTAL (test Unit/L 45-117 code = ALKP) CBC W/AUTO [id number] 08:29:00 Test Item Value Reference Range Interpretation Comments WHITE BLOOD CELL (test code = 20.0 K/mm3 3.5-11.0 H WBC) RED BLOOD CELL (test code = RBC) 4.42 M/mm3 4.70-6.10 L HEMOGLOBIN (test code = HGB) 13.1 G/DL 10.4-14.9 N HEMATOCRIT (test code = HCT) 38.3 % 31.5-44.1 N MEAN CELL VOLUME (test code = 86.7 Fl 84.5-98.6 N MCV) MEAN CELL HGB (test code = MCH) 29.6 pg 27.0-34.2 N MEAN CELL HGB CONCETRATION (test 34.2 G/DL 31.5-34.0 H code = MCHC) RED CELL DISTRIBUTION WIDTH (test 14.1 SD 11.5-14.5 N code = RDW) PLATELET COUNT (test code = PLT) 272.0 K/mm3 150-450 N MEAN PLATELET VOLUME (test code = 9.30 fL 7.0-10.5 N MPV) NEUTROPHIL % (test code = NT%) 90.7 % 40-76 H LYMPHOCYTE % (test code = LY%) 6.9 % 20.5-51.1 L MONOCYTE % (test code = MO%) 2.3 % 1.7-9.3 N EOSINOPHIL % (test code = EO%) 0.0 % 0.0-6.0 N BASOPHIL % (test code = BA%) 0.1 % 0.0-2.0 N NEUTROPHIL # (test code = NT#) 18.16 K/mm3 1.8-7.6 H LYMPHOCYTE # (test code = LY#) 1.4 K/mm3 0.6-3.2 N MONOCYTE # (test code = MO#) 0.5 K/mm3 0.3-1.1 N EOSINOPHIL # (test code = EO#) 0.0 K/mm3 0.0-0.4 N BASOPHIL # (test code = BA#) 0.0 K/mm3 0.0-0.1 N MANUAL DIFF REQUIRED (test code = NO DIFF/SCN CRITERIA MDIFF) - XR CHEST 1 [id number] 07:00:00 Name: MARYCRUZ RICHARD [facility] : 1975 Age/S: 43 / F [id number] [address] Unit #: [id number] Loc: [place] [address] Phys: Néstor Elias MD Acct: [id number] Dis Date: Status: ADM IN PHONE #: [phone] Exam Date: 02/07/2019 0650 FAX #: Reason: RLL pneumonia, asthma exacerbation EXAMS: CPT: [id number] XR CHEST 1 V 15266 Fluoro Time: DAP (Gy m2): Air Kerma (mGy): EXAM: - XR CHEST 1 V HISTORY: Pneumonia Location code:C3 COMPARISON: 02/06/2019 FINDINGS: Single AP view of the chest is provided. Heart size and vascularity are within nor mal limits. Right basilar opacity is similar. The left lung is clear. There is no effusion or pneumothorax. IMPRESSION: 1. Unchanged right basilar opacity. at 0700 Reported and signed by: Hi Wayne MD CC: Néstor Elias MD; Brea Coburn MD; Nicole AYALA; Addison Durham MD PAGE 1 Signed Report Name: MARYCRUZ RICHARD [facility] : 1975 Age/S: 43 / F [id number] [address] Unit #: [id number] Loc: [place] [address] Phys: Néstor Elias MD Acct: [id number] Dis Date: Status: ADM IN PHONE #: [phone] Exam Date: 02/07/2019 0650 FAX#: Reason: RLL pneumonia, asthma exacerbation EXAMS: CPT: [id number] XR CHEST 1 V 06832 Fluoro Time: DAP (Gy m2): Air Kerma (mGy): <Continued> Technologist: Madeline Madison RDMS, RT(R) Trnscb Date/Time: 02/07/2019 (699) [id number] Orig Print D/T: S: 02/07/2019 (0703) PAGE 2 Signed [id number] 21:43:00 Test Item Value Reference Range Interpretation Comments TROPONIN-I (test < 0.015 NG/ML 0.000-0.045 N Negative: </= 0.045 code = TROPI) Positive: >/= 0.046 Correlation wit h serial results, other cardiac markers, and cl inical findings is nec essary to determine the c linical significance of this result. Quantit ative results using d ifferent methodologies s hould not be compared to one another as nume rical results may chung yby method. Completed by Nursing: NOURINALYSIS [id number] 20:29:00 Test Item Value Reference Range Interpretation Comments UA COLOR (test code = COLU) YELLOW discript YEL/STRAW UA APPEARANCE (test code = CLEAR discript CLEAR APPU) UA GLUCOSE DIPSTICK (test NEGATIVE mg/dL NEG code = DGLUU) UA BILIRUBIN DIPSTICK (test NEGATIVE mg/dL NEG code = BILU) UA KETONE DIPSTICK (test 1+ mg/dL NEG code = KETU) UA SPECIFIC GRAVITY (test <=1.005 SG 1.005-1.030 code = SGU) UA BLOOD DIPSTICK (test 3+ mg/DL NEG A code = KERRIE) UA PH DIPSTICK (test code = <=5.0 pH UNITS 5.0-7.0 MIS) UA PROTEIN DIPSTICK (test TRACE mg/dL NEG A code = PROU) UA UROBILINIOGEN DIPSTICK 0.2 mg/dL <2.0 (test code = URO) UA NITRITE DIPSTICK (test POSITIVE SCREEN NEG A code = FREDRICK) UA LEUKOCYTE ESTERASE NEGATIVE Leuk/mcL NEGATIVE DIPSTICK (test code = LEUU) UA RBC (test code = RBCU) 5-10 #RBC/HPF 0-3 A UA SQUAMOUS CELLS (test 2+ /HPF NONE A code = SQU) [id number] 20:19:00 Test Item Value Reference Range Interpretation Comments TROPONIN-I (test < 0.015 NG/ML 0.000-0.045 N Negative: </= 0.045 code = TROPI) Positive: >/= 0.046 Correlation wit h serial results, other cardiac markers, and cl inical findings is nec essary to determine the c linical significance of this result. Quantit ative results using d ifferent methodologies s hould not be compared to one another as nume rical results may chung yby method. Completed by Nursing: NOURINALYSIS [id number] 19:59:00 Test Item Value Reference Range Interpretation Comments UA COLOR (test code = COLU) YELLOW discript YEL/STRAW UA APPEARANCE (test code = CLEAR discript CLEAR APPU) UA GLUCOSE DIPSTICK (test NEGATIVE mg/dL NEG code = DGLUU) UA BILIRUBIN DIPSTICK (test NEGATIVE mg/dL NEG code = BILU) UA KETONE DIPSTICK (test 1+ mg/dL NEG code = KETU) UA SPECIFIC GRAVITY (test <=1.005 SG 1.005-1.030 code = SGU) UA BLOOD DIPSTICK (test 3+ mg/DL NEG A code = KERRIE) UA PH DIPSTICK (test code = <=5.0 pH UNITS 5.0-7.0 MIS) UA PROTEIN DIPSTICK (test TRACE mg/dL NEG A code = PROU) UA UROBILINIOGEN DIPSTICK 0.2 mg/dL <2.0 (test code = URO) UA NITRITE DIPSTICK (test POSITIVE SCREEN NEG A code = FREDRICK) UA LEUKOCYTE ESTERASE NEGATIVE Leuk/mcL NEGATIVE DIPSTICK (test code = LEUU) - CT CHEST [id number] 17:55:00 Name: DEBBIE RICHARDHUNDRA [facility] : 1975 Age/S: 43 / F [id number] [address] Unit #: [id number] Loc: [place] [address] Phys: Néstor Elias MD Acct: [id number] Dis Date: Status: REG ER PHONE #: [phone] Exam Date: 02/06/2019 3615 FAX #: Reason: questonable opacity EXAMS: CPT: [id number] CT CHEST W/CONTRAST [address] CT CHEST ANGIOGRAM WITH IV CONTRAST; PE PROTOCOL WITH MIP RECONSTRUCTIONS HISTORY: questonable opacity COMPARISON: Chest x-ray 02/06/19. TECHNIQUE: Axial CT images of the chest were obtained with coronal and/or sagittal reformatted views with MIP and/or 3-D reconstruction of the pulmonary arteries. Automated exposure control, iterative reconstruction technique, and/or adjustment of mA and/or kV according to patient's size was utilized for radiation dose reduction. IV CONTRAST: 100 ml Isovue-370. Location: U19. FINDINGS: Visualized thyroid is unremarkable. The heart size is normal. No pericardial effusion. The aorta is normal in caliber. No definite aortic dissection. Limited assessment of the pulmonary arteries due to mixing artifact without definite pulmonary embolism. Borderline right hilar adenopathy measuring 1.3 cm. No mediastinal or axillary adenopathy. 3 mm nodule seen in the right upper lobe abutting the pleural. A another 4 mm nodule noted anteriorly in the right upper lobe. Groundglass opacity seen anteriorlyin right lower lobe. There are smaller patchy infiltrates noted more inferiorly. Thereare some mild areas of bronchial wall thickening throughout both lungs. Nodule along the leftmajor fissure measuring 5 mm may relate to an intralobular lymph node. No pleural effusion orpneumothorax. Visualized adrenal glands are unremarkable. Minimal degenerative changes affect the thoracic spine. IMPRESSION: Limited assessment of the pulmonary arteries due to mixing artifact. No definite pulmonary embolism or aortic dissection. Borderline right hilar adenopathy. Groundglass opacity seen in the right lower lobe may relate to pneumonia. Diffuse bronchial wall thickening suggest anastacio of bronchitis. PAGE 1 Signed Report (CONTINUED) Name: MARYCRUZ RICHARD [facility] [place] : 1975 Age/S: 43/ F [id number] [address] Unit #: [id number] Loc: [place] [address] Phys: Néstor Elias MD Acct: [id number] Dis Date: Status: REG ER PHONE #: [phone] Exam Date: 02/06/2019 1742 FAX #: Reason: questonable opacity EXAMS: CPT: [id number] CT CHEST W/CONTRAST 02962 <Continued> at 1755 Reported and signed by: Tim Iraheta M.D. CC: Néstor Elias MD; Nicole AYALA; Addison Durham MD Technologist: Jd Younger, RT(R)(CT)(MRI); CTDI: DLP: Trnscb Date/Time: 02/06/2019 (1754) [email or web address] Orig Print D/T: S: 02/06/2019 (327) CTDI: DLP: PAGE 2 Signed ReportCHEMISTRY 8 [id number] 17:25:00 Test Item Value Reference Range Interpretation Comments ISTAT-SODIUM (test code = NAP) mmol/L 135-146 ISTAT-POTASSIUM (test code = KP) mmol/L 3.5-4.9 ISTAT-CHLORIDE (test code = CLP) mmol/L 98-109 ISTAT-CARBON DIOXIDE (test code = mmol/L 24-29 L ISTAT-CO2) ISTAT CALCIUM IONIZED (test code = mmol/L 1.12-1.32 ISTAT-SHANELLE) ISTAT-GLUCOSE (test code = GLUP) mg/dL 70-105 N ISTAT-BUN (test code = BUNP) mg/dL 8-26 L BEDSIDE CREATININE (test code = mg/dL 0.6-1.3 L CREATBED) GLOMERULAR FILTRATION RATE POC (test 173 58-135 H code = GFRBED) CHEMISTRY 8 [id number] 17:25:00 Test Item Value Reference Range Interpretation Comments ISTAT-SODIUM (test code = NAP) 139 mmol/L 135-146 N ISTAT-POTASSIUM (test code = KP) 3.6 mmol/L 3.5-4.9 N ISTAT-CHLORIDE (test code = CLP) 102 mmol/L 98-109 N ISTAT-CARBON DIOXIDE (test code = 21 mmol/L 24-29 L ISTAT-CO2) ISTAT CALCIUM IONIZED (test code 1.22 mmol/L 1.12-1.32 N = ISTAT-SHANELLE) ISTAT-GLUCOSE (test code = GLUP) 104 mg/dL 70-105 N ISTAT-BUN (test code = BUNP) 6 mg/dL 8-26 L BEDSIDE CREATININE (test code = 0.5 mg/dL 0.6-1.3 L CREATBED) GLOMERULAR FILTRATION RATE POC 173 58-135 H (test code = GFRBED) - XR CHEST 2 [id number] 15:46:00 [facility] 1975 Age[facility]S: 43 / F [address] [address] Unit #: [id number] Loc: [place] [address] Phys: Néstor Elias MD Acct: [id number] Dis Date: Status: REG ER PHONE #: [phone] Exam Date: 02/06/2019 1540 FAX #: Reason: SOB EXAMS: CPT: [id number] XR CHEST 2 V 61468 Fluoro Time: DAP (Gy m2): Air Kerma (mGy): EXAMINATION: - XR CHEST 2 V. LOCATION: T18. HISTORY: SOB, difficulty breathing. COMPARISON: None. FINDINGS: Cardiac silhouette/Mediastinal contour: Within normal limits. Lungs: Questionable right hilar opacity/fullness. No pleural effusion. OsseousStructures: No acute osseous abnormalities. IMPRESSION: Questionable right hilar opacity/fullness, correlate with CTA chest. at 1543 Reported and signed by: Jefferson Suarez M.D. CC: Kareem REY; Nicole AYALA; Addison Durham MD PAGE 1 Signed Report Name: MARYCRUZ RICHARD [place] : 1975 Age/S: 43 / F [address] [address] Unit #: [id number] Loc: [place] [address] Phys: Néstor Elias MD Acct: [id number] Dis Date: Status: REG ER PHONE #: [phone] Exam Date: 02/06/2019 1540 FAX #: Reason: SOB EXAMS: CPT: [id number] XR CHEST 2 V 51222 Fluoro Time: DAP (Gy m2): Air Kerma (mGy): <Continued> Technologist: Kike Rodríguez, RT(R)(CT) Trnscb Date/Time: 02/06/2019 (2374) [email or web address] Orig Print D/T: S: 02/06/2019 (2858) PAGE 2 Signed Report
--- NOTE | 2021-05-31 19:32 | EDPHYS ---
Physician Documentation [facility] Name: Keya Rene Age: 46 yrs Sex: Female : 1975 Arrival Date: 05/31/2021 Time: 17:52 Bed 23 Private MD: ED Physician Khari Lee HPI: 05/31 19:22 This 46 yrs old Black Female presents to ER via Ambulatory with complaints of High pkl Blood Pressure. 19:22 Onset: The symptoms/episode began/occurred 5 day(s) ago. Associated signs and symptoms: pkl The patient has no apparent associated signs or symptoms. Patient said she stopped taking her BP medications for a few months and wanted to try taking OTC supplements to see if her BP will be controlled. She noticed her BP over the past few days have been high. Denies any symptoms. 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 Flu vaccine is not up to date. - Social history:: Smoking status: Patient/guardian denies using tobacco, the patient reports quitting approximately 1 years ago. ROS: 19:22 Eyes: Negative for injury, pain, redness, and discharge, ENT: Negative for injury, pkl pain, and discharge, Neck: Negative for injury, pain, and swelling, Cardiovascular: Negative for chest pain, palpitations, and edema, Respiratory: Negative for shortness of breath, cough, wheezing, and pleuritic chest pain, Abdomen/GI: Negative for abdominal pain, nausea, vomiting, diarrhea, and constipation, Back: Negative for injury and pain, : Negative for injury, bleeding, discharge, and swelling, MS/Extremity: Negative for injury and deformity, Skin: Negative for injury, rash, and discoloration, Neuro: Negative for headache, weakness, numbness, tingling, and seizure. Exam: 19:22 Head/Face: Normocephalic, atraumatic. Eyes: Pupils equal round and reactive to light, pkl extra-ocular motions intact. Lids and lashes normal. Conjunctiva and sclera are non-icteric and not injected. Cornea within normal limits. Periorbital areas with no swelling, redness, or edema. ENT: Nares patent. No nasal discharge, no septal abnormalities noted. Tympanic membranes are normal and external auditory canals are clear. Oropharynx with no redness, swelling, or masses, exudates, or evidence of obstruction, uvula midline. Mucous membranes moist. Neck: Trachea midline, no thyromegaly or masses palpated, and no cervical lymphadenopathy. Supple, full range of motion without nuchal rigidity, or vertebral point tenderness. No Meningismus. Chest/axilla: Normal chest wall appearance and motion. Nontender with no deformity. No lesions are appreciated. Cardiovascular: Regular rate and rhythm with a normal S1 and S2. No gallops, murmurs, or rubs. Normal PMI, no JVD. No pulse deficits. Respiratory: Lungs have equal breath sounds bilaterally, clear to auscultation and percussion. No rales, rhonchi or wheezes noted. No increased work of breathing, no retractions or nasal flaring. Abdomen/GI: Soft, non-tender, with normal bowel sounds. No distension or tympany. No guarding or rebound. No evidence of tenderness throughout. Back: No spinal tenderness. No costovertebral tenderness. Full range of motion. Skin: Warm, dry with normal turgor. Normal color with no rashes, no lesions, and no evidence of cellulitis. MS/ Extremity: Pulses equal, no cyanosis. Neurovascular intact. Full, normal range of motion. Neuro: Awake and alert, GCS 15, oriented to person, place, time, and situation. Cranial nerves II-XII grossly intact. Motor strength 5/5 in all extremities. Sensory grossly intact. Cerebellar exam normal. Normal gait. Vital Signs: 18:02 BP 142 / 115 RA; ca1 18:02 BP 127 / 102 LA; Pulse 92 RA; Resp 18 S; Temp 97.3(TE); Pulse Ox 99% on R/A; Weight ca1 72.57 kg (R); Height 5 ft. 4 in. (162.56 cm) (R); Pain 0/10; 18:06 BP 149 / 102 RA; ca1 19:45 BP 152 / 98; Pulse 80; Resp 18; Pulse Ox 98% ; ea 18:02 Body Mass Index 27.46 (72.57 kg, 162.56 cm) ca1 MDM: 19:11 Patient medically screened. pkl 19:22 Data reviewed: vital signs, nurses notes. ED course: Advised to resume taking BP pkl medications and follow up with her PCP next week. Patient understood instructions. Administered Medications: 19:51 Drug: Lisinopril 20 mg Route: PO; ea 19:51 Follow up: Response: Medication administered at discharge. ea 19:51 Drug: NIFEdipine 30 mg Route: PO; ea 19:51 Follow up: Response: Medication administered at discharge. ea 19:51 Drug: NIFEdipine 30 mg Route: PO; ea 19:51 Follow up: Response: Medication administered at discharge. ea Disposition Summary: 05/31/21 19:32 Discharge Ordered Location: Home pkl Problem: new pkl Symptoms: are unchanged pkl Condition: Stable pkl Diagnosis - Hypertension ( Non - complaint ) pkl Followup: pkl - With: Private Physician - When: 1 week - Reason: Re-evaluation by your physician Discharge Instructions: - Discharge Summary Sheet pkl Forms: - Medication Reconciliation Form pkl - Thank You Letter pkl - Antibiotic Education pkl - Prescription Opioid Use pkl Prescriptions: - nifedipine 60 mg Oral tablet extended release 24hr - take 1 tablet by ORAL route once daily; 30 tablet; Refills: 0, Product pkl Selection Permitted - Lisinopril-Hydrochlorothiazide 20-25 mg Oral Tablet - take 1 tablet by ORAL route once daily; 30 tablet; Refills: 0, Product pkl Selection Permitted Signatures: Khari Lee MD MD pkl Nadege Russell RN RN ea Nataly Bess RN RN ca1
--- NOTE | 2021-05-31 19:32 | ER ---
Nurse's Notes [facility] Name: Keya Rene Age: 46 yrs Sex: Female : 1975 Arrival Date: 05/31/2021 Time: 17:52 Bed 23 Private MD: Diagnosis: Hypertension ( Non - complaint ) Presentation: 05/31 18:02 Chief complaint: Patient states: I take my BP everyday. Since Tuesday it has been high. ca1 Highest was 150/110. Denies headache. Denies dizziness. No complaints at this time. Coronavirus screen: Client denies travel out of the [place] in the last 14 days. At this time, the client does not indicate any symptoms associated with coronavirus-19. Ebola Screen: Patient negative for fever greater than or equal to 101.5 degrees Fahrenheit, and additional compatible Ebola Virus Disease symptoms Patient denies exposure to infectious person. Patient denies travel to an Ebola-affected area in the 21 days before illness onset. No symptoms or risks identified at this time. Initial Sepsis Screen: Does the patient meet any 2 criteria? No. Patient's initial sepsis screen is negative. Does the patient have a suspected source of infection? No. Patient's initial sepsis screen is negative. Risk Assessment: Do you want to hurt yourself or someone else? Patient reports no desire to harm self or others. Onset of symptoms. 18:02 Method Of Arrival: Ambulatory ca1 18:02 Acuity: TYESHA 2 ca1 Triage Assessment: 19:20 General: Appears in no apparent distress. Behavior is calm, cooperative, appropriate ea for age. 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 Flu vaccine is not up to date. - Social history:: Smoking status: Patient/guardian denies using tobacco, the patient reports quitting approximately 1 years ago. Screenin:20 Abuse screen: Denies threats or abuse. Nutritional screening: No deficits noted. ea Tuberculosis screening: No symptoms or risk factors identified. Fall Risk None identified. Assessment: 19:20 General: Appears in no apparent distress. Behavior is calm, cooperative, appropriate ea for age. Pain: Denies pain. Neuro: No deficits noted. Cardiovascular: No deficits noted. Respiratory: No deficits noted. GI: No deficits noted. Derm: No deficits noted. Vital Signs: 18:02 BP 142 / 115 RA; ca1 18:02 BP 127 / 102 LA; Pulse 92 RA; Resp 18 S; Temp 97.3(TE); Pulse Ox 99% on R/A; Weight ca1 72.57 kg (R); Height 5 ft. 4 in. (162.56 cm) (R); Pain 0/10; 18:06 BP 149 / 102 RA; ca1 19:45 BP 152 / 98; Pulse 80; Resp 18; Pulse Ox 98% ; ea 18:02 Body Mass Index 27.46 (72.57 kg, 162.56 cm) ca1 ED Course: 17:52 Patient arrived in ED. mr 18:04 Triage completed. ca1 18:05 Arm band placed on right wrist. ca1 19:11 Nadege Russell RN is Primary Nurse. ea 19:11 Khari Lee MD is Attending Physician. pkl 19:20 Patient has correct armband on for positive identification. Bed in low position. Call ea light in reach. Side rails up X2. 19:52 No provider procedures requiring assistance completed. Patient did not have IV access ea during this emergency room visit. Administered Medications: 19:51 Drug: Lisinopril 20 mg Route: PO; ea 19:51 Follow up: Response: Medication administered at discharge. ea 19:51 Drug: NIFEdipine 30 mg Route: PO; ea 19:51 Follow up: Response: Medication administered at discharge. ea 19:51 Drug: NIFEdipine 30 mg Route: PO; ea 19:51 Follow up: Response: Medication administered at discharge. ea Outcome: 19:32 Discharge ordered by . pkl 19:51 Discharged to home ambulatory. ea 19:51 Condition: stable 19:51 Discharge instructions given to patient, Instructed on discharge instructions, follow up and referral plans. medication usage, Demonstrated understanding of instructions, follow-up care, medications, Prescriptions given X 2. 19:53 Patient left the ED. ea Signatures: Khari Lee MD MD pkl Rivera, Mary mr Russell, Nadege, RN RN ea Acob, Nataly, RN RN ca1 Corrections: (The following items were deleted from the chart) 18:06 18:02 Acuity: TYESHA 3 ca1 ca1
[2021-05-31 20:01] VITALS: BP 152/98; O2SAT 98
[2021-05-31] MEDS ORDERED: lisinopriL 10 MG TAB ONE (20:06)
[2021-05-31] MEDS ORDERED: NIFEdipine 10 MG CAP ONE (20:06)
[2021-05-31 20:09] VITALS: TEMP 97.3
== END 2021-05-31 19:53 | disposition home or self-care (01) ==
LOC: ER 17:50
DX: I10 Essential (primary) hypertension (principal); Z91.14 Patient's other noncompliance with medication regimen
CPT/HCPCS: 99283

== ENCOUNTER 2021-11-01 21:09 | Emergency (ER) | payer OTHER ==
--- OUTSIDE RECORDS SUMMARY | 2021-11-01 21:14 | XMS REPORT | Continuity of Care Document ---
:1975 Author Organization [facility] t Address [address] [place] [address] Care Team Providers Name Role Phone Physician, Primary or Family Admitting Clinician Unavailabl e Payers Payer Name Policy Type Policy Number Effective Date Expiration Date S ource Problems This patient has no known problems. Allergies, Adverse Reactions, Alerts Allergy Allergy Status Severity Reaction(s) Onset Inactive Treating Comm ents Source Name Type Date Date Clinician No Known DA Active U 2017- [facility] Allergie 2-26 [place] s 00:00: d 00 [facility] No Known DA Active U 2017- [facility] Allergie 2-26 Clear s 00:00: Tobias 00 [facility] No Known DA Active U 2017- [facility] Allergie 6-04 [place] s 00:00: d 00 [facility] Medications This patient has no known medications. Procedures This patient has no known procedures. Encounters Start End Encounter Admission Attending Care Care Encounter Source Date/Time Date/Time Type Type Clinicians Facility Department ID 2020-08-26 Inpatient [facility]CAPM GUILLERMO [id number] [facility] 21:37:00 [id number] [facility] 2020-06-03 Inpatient HCAPM GUILLERMO [id number] [facility] 01:10:00 [facility] 2020-03-11 2020-03-11 Emergency E [facility] [id number] [facility] 20:04:00 20:04:00 2020-03-11 2020-03-11 Emergency E [facility] [id number] [facility] 12:21:00 12:21:00 2020-02-05 2020-02-05 Emergency E BL [facility] [id number] [facility] 08:43:00 08:43:00 Results Test Description Test Time Test Comments Results Result Comments Source COVID 19 Asymptomatic IH AG 2020-06-03 04:50:00 Test Item Value Reference Range Interpretation Comme nts COVID 19 Asymptomatic IH AG NEGATIVE Negative Per 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 - XR CHEST 2 [id number] 04:02:00 Name: MARYCRUZ RICHARD [facility] : 1975 Age/S: 45 / F [address] Unit #: [id number] Loc: [place] [address] Phys: Shimon Santamaria MD Acct: [id number] Dis Date: Status: REG ER PHONE #: [phone] Exam Date: 06/03/2020 0355 FAX #: Reason: sob EXAMS: CPT: [id number] XR CHEST 2 V 27101 Fluoro Time: DAP (Gy m2): Air Kerma [...] Signed Report Name: MARYCRUZ RICHARD [facility] : 1975 Age/S: 45 / F [address] Unit#: [id number] Loc: [place] [address] Phys: Shimon Santamaria MD Acct: [id number] Dis Date: Status: REG ER PHONE #: [phone] Exam Date: 06/03/2020 0355 FAX #: Reason: sob EXAMS: CPT: [id number] XR CHEST 2 V 61657 Fluoro Time: DAP (Gy m2): Air Kerma (mGy): <Continued> Technologist: Blayne Hu RT(R) Trnscb Date/Time: 06/03/2020 (401) [email or web address] Orig Print D/T: S: 06/03/2020 (404) PAGE 2 Signed ReportCBC W/AUTO [id number] 12:08:00 Test Item Value Reference Range Interpretation [...] code YES DIFF/SCN CRITERIA = MDIFF) WBC [id number] 12:08:00 Test Item Value Reference Range Interpretation Comments SEGMENTED NEUTROPHILS (test code = SEG) 62 % 40-75 N BAND NEUTROPHIL (test code = BAND) 2 % 0-8 N LYMPHOCYTE (test code = LYMPH) 22 % 18.7-40.6 N ATYPICAL LYMPH (test code = ALYMPH) 4 % 0-0 H MONOCYTE (test code = MON) 10 % 3.8-11.4 N CBC W/AUTO [id number] 12:07:00 Test Item Value Reference Range Interpretation [...] code YES DIFF/SCN CRITERIA = MDIFF) WBC [id number] 12:07:00 Test Item Value Reference Range Interpretation Comments SEGMENTED NEUTROPHILS (test code = SEG) % 40-75 LYMPHOCYTE (test code = LYMPH) % 18.7-40.6 CBC W/AUTO [id number] 12:07:00 Test Item Value Reference Range Interpretation [...] code YES DIFF/SCN CRITERIA = MDIFF) WBC [id number] 12:07:00 Test Item Value Reference Range Interpretation Comments SEGMENTED NEUTROPHILS (test code = SEG) % 40-75 LYMPHOCYTE (test code = LYMPH) % 18.7-40.6 BASIC METABOLIC [id number] 08:34:00 Test Item Value Reference Range Interpretation [...] CA) 8.9 MG/DL 8.5-10.1 N CBC W/AUTO [id number] 08:14:00 Test Item Value Reference Range Interpretation [...] code = DIFF/SCN CRITERIA MDIFF) CBC W/AUTO [id number] 08:34:00 Test Item Value Reference Range Interpretation [...] code YES DIFF/SCN CRITERIA = MDIFF) WBC [id number] 08:34:00 Test Item Value Reference Range Interpretation Comments SEGMENTED NEUTROPHILS (test code = SEG) % 40-75 LYMPHOCYTE (test code = LYMPH) % 18.7-40.6 CBC W/AUTO [id number] 08:34:00 Test Item Value Reference Range Interpretation [...] code YES DIFF/SCN CRITERIA = MDIFF) WBC [id number] 08:34:00 Test Item Value Reference Range Interpretation [...] (test NORMAL code = PLTMORPH) CBC W/AUTO [id number] 08:34:00 Test Item Value Reference Range Interpretation [...] code YES DIFF/SCN CRITERIA = MDIFF) WBC [id number] 08:34:00 Test Item Value Reference Range Interpretation Comments SEGMENTED NEUTROPHILS (test code = SEG) % 40-75 LYMPHOCYTE (test code = LYMPH) % 18.7-40.6 BASIC METABOLIC [id number] 06:23:00 Test Item Value Reference Range Interpretation [...] CA) 8.8 MG/DL 8.5-10.1 N CBC W/AUTO [id number] 05:59:00 Test Item Value Reference Range Interpretation [...] DIFF/SCN CRITERIA MDIFF) - XR CHEST 1 [id number] 12:33:00 Name: MARYCRUZ RICHARD [facility] : 1975 Age/S: 43 / F [address] Unit #: [id number] Loc: [place] [address] Phys: Lei Fairchild MD Acct: [id number] Dis Date: Status: ADM IN PHONE #: [phone] Exam Date: 02/08/2019 1214 FAX #: Reason: SOB EXAMS: CPT: [id number] XR CHEST 1 V 80211 Fluoro Time: DAP (Gy m2): Air Kerma [...] Signed Report Name: MARYCRUZ RICHARD [facility] : 1975 Age/S: 43 / F [address] Unit #: [id number] Loc: [place] [address] Phys: Lei Fairchild MD Acct: [id number] Dis Date: Status: ADM IN PHONE #: [phone] Exam Date: 02/08/2019 1214 FAX #: Reason: SOB EXAMS: CPT: [id number] XR CHEST 1 V 70392 Fluoro Time: DAP (Gy m2): Air Kerma (mGy): <Continued> Technologist: Solomon Kothari, RT(R)(CT) Trnscb Date/Time: 02/08/2019 (5603) [email or web address].[email or web address] Orig Print D/T: S: 02/08/2019 (3140) PAGE 2 Signed ReportCB W/AUTO [id number] 08:15:00 Test Item Value Reference Range Interpretation [...] DIFF REQUIRED NO DIFF/SCN CRITERIA SLIDE R EVIEW (test code = MDIFF) CONSISTA NT WITH AUTO DIFFERENTIAL. BASIC METABOLIC [id number] 05:03:00 Test Item Value Reference Range Interpretation [...] CA) 8.5 MG/DL 8.5-10.1 N CBC W/AUTO [id number] 04:57:00 Test Item Value Reference Range Interpretation [...] <2 ng/mL are obtai nelida. COMPREHENSIVE METABOLIC [id number] 08:59:00 Test Item Value Reference Range Interpretation [...] TOTAL (test code = ALKP) COMPREHENSIVE METABOLIC [id number] 08:53:00 Test Item Value Reference Range Interpretation [...] Unit/L 45-117 code = ALKP) CBC W/AUTO [id number] 08:29:00 Test Item Value Reference Range Interpretation [...] DIFF/SCN CRITERIA MDIFF) - XR CHEST 1 [id number] 07:00:00 Name: MARYCRUZ RICHARD [facility] : 1975 Age/S: 43 / F [address] Unit #: [id number] Loc: [place] [address] Phys: Néstor Elias MD Acct: [id number] Dis Date: Status: ADM IN PHONE #: [phone] Exam Date: 02/07/2019 0650 FAX #: Reason: RLL pneumonia, asthma exacerbation EXAMS: CPT: [id number] XR CHEST 1 V 63933 Fluoro Time: DAP (Gy m2): Air Kerma [...] Néstor Elias MD; Brea Coburn MD; Nicole YAALA; Addison Durham MD PAGE 1 Signed Report Name: MARYCRUZ RICHARD [place] : 1975 Age/S: 43 / F [address] Unit #: [id number] Loc: [place] [address] Phys: Néstor Elias MD Acct: [id number] Dis Date: Status: ADM IN PHONE #: [phone] Exam Date: 02/07/2019 0650 FAX#: Reason: RLL pneumonia, asthma exacerbation EXAMS: CPT: [id number] XR CHEST 1 V 85140 Fluoro Time: DAP (Gy m2): Air Kerma (mGy): <Continued> Technologist: Madeline Madison RDMS, RT(R) Trnscb Date/Time: 02/07/2019 (07) [email or web address] Orig Print D/T: S: 02/07/2019 (0703) PAGE 2 Signed [id number] 21:43:00 Test Item Value Reference Range Interpretation [...] chung yby method. Completed by Nursing: NOURINALYSIS [id number] 20:29:00 Test Item Value Reference Range Interpretation [...] 2+ /HPF NONE A code = SQU) [id number] 20:19:00 Test Item Value Reference Range Interpretation [...] chung yby method. Completed by Nursing: NOURINALYSIS [id number] 19:59:00 Test Item Value Reference Range Interpretation [...] (test code = LEUU) - CT CHEST [id number] 17:55:00 Name[facility] 1975 Age/S: 43 / F [address] Unit #: [id number] Loc: [place] [address] Phys: Néstor Elias MD Acct: [id number] Dis Date: Status: REG ER PHONE #: [phone] Exam Date: 02/06/2019 8909 FAX #: Reason: questonable opacity EXAMS: CPT: [id number] CT CHEST W/CONTRAST 59735 CT CHEST ANGIOGRAM WITH IV CONTRAST; PE [...] 1 Signed Report (CONTINUED) Name: MARYCRUZ RICHARD : 1975 Age/S: 43/ F [address] Unit #: [id number] Loc: [place] [address] Phys: Néstor Elias MD Acct: [id number] Dis Date: Status: REG ER PHONE #: [phone] Exam Date: 02/06/2019 1742 FAX #: Reason: questonable opacity EXAMS: CPT: [id number] CT CHEST W/CONTRAST 11218 <Continued> at 1755 Reported and signed by: Tim Iraheta M.D. CC: Néstor Elias MD; Nicole AYALA; Addison Durham MD Technologist: Jd Younger, RT(R)(CT)(MRI); CTDI: DLP: Trnscb Date/Time: 02/06/2019 (1754) t.[email or web address] Orig Print D/T: S: 02/06/2019 (1757) CTDI: DLP: PAGE 2 Signed ReportCHEMISTRY 8 [id number] 17:25:00 Test Item Value Reference Range Interpretation [...] 58-135 H code = GFRBED) CHEMISTRY 8 [id number] 17:25:00 Test Item Value Reference Range Interpretation [...] code = GFRBED) - XR CHEST 2 [id number] 15:46:00 Name: MARYCRUZ RICHARD [facility] : 1975 Age/S: 43 / F [address] [address] Unit #: [id number] Loc: [place] [address] Phys: Néstor Elias MD Acct: [id number] Dis Date: Status: REG ER PHONE #: [phone] Exam Date: 02/06/2019 1540 FAX #: Reason: SOB EXAMS: CPT: [id number] XR CHEST 2 V 57233 Fluoro Time: DAP (Gy m2): Air Kerma [...] RICHARD : 1975 Age/S: 43 / F [address] [address] Unit #: [id number] Loc: [place] [address] Phys: Néstor Elias MD Acct: [id number] Dis Date: Status: REG ER PHONE #: [phone] Exam Date: 02/06/2019 1540 FAX #: Reason: SOB EXAMS: CPT: [id number] XR CHEST 2 V 95327 Fluoro Time: DAP (Gy m2): Air Kerma (mGy): <Continued> Technologist: Kike Rodríguez RT(R)(CT) Trnscb Date/Time: 02/06/2019 (1548) [email or web address] Orig Print D/T: S: 02/06/2019 (7910) PAGE 2 Signed Report
[2021-11-01] MEDS ORDERED: ACETAMINOPHEN 325 MG TABLET ONE (23:53)
[2021-11-01] MEDS ORDERED: METOCLOPRAMIDE 10 MG/2mL INJ ONE (23:53)
[2021-11-01] MEDS ORDERED: DIPHENHYDRAMINE 50 MG/ML VIAL ONE (23:53)
[2021-11-02 00:13] LABS: SARS-COV-2 RT PCR NEGATIVE (NEGATIVE)
[2021-11-02 00:53] LABS: Urine Blood 1+ (Negative); Urine Glucose Negative (Negative); Urine Protein Negative (Negative)
--- NOTE | 2021-11-02 01:37 | EDPHYS ---
Physician Documentation [facility] Name: Keya Rene Age: 46 yrs Sex: Female : 1975 Arrival Date: 11/01/2021 Time: 21:12 Bed 15 Private MD: ED Physician Tyrel Singer HPI: 11/01 23:35 This 46 yrs old Black Female presents to ER via Ambulatory with complaints of Headache. mh7 23:35 The patient complains of pain to the forehead. The patient describes the headache as mh7 intermittent, throbbing, waxing and waning. Onset: The symptoms/episode began/occurred yesterday. 23:37 Associated signs and symptoms: Pertinent negatives: altered mental status, dizziness, mh7 fever, malaise, nausea, neck stiffness, paresthesias, Photophobia rash, sinus congestion, sinus tenderness, vision changes, vision loss, vomiting, weakness, vertigo. Severity of symptoms: At its worst the pain was moderate, last night, in the emergency department the pain has improved, moderately. Headache History: Other Pain with movement of head. The symptoms are alleviated by nothing. Took aspirin only the symptoms are aggravated by movement. 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 - Social history:: Smoking status: Patient denies any tobacco usage or history of. ROS: 23:37 Constitutional: Negative for fever, chills, and weight loss, ENT: Negative for injury, mh7 pain, and discharge, Neck: Negative for injury, pain, and swelling, Cardiovascular: Negative for chest pain, palpitations, and edema, Respiratory: Negative for shortness of breath, cough, wheezing, and pleuritic chest pain, Abdomen/GI: Negative for abdominal pain, nausea, vomiting, diarrhea, and constipation, Back: Negative for injury and pain, : Negative for injury, bleeding, discharge, and swelling, MS/Extremity: Negative for injury and deformity, Skin: Negative for injury, rash, and discoloration, Psych: Negative for depression, anxiety, suicide ideation, homicidal ideation, and hallucinations, Allergy/Immunology: Negative for hives, rash, and allergies, Endocrine: Negative for neck swelling, polydipsia, polyuria, polyphagia, and marked weight changes, Hematologic/Lymphatic: Negative for swollen nodes, abnormal bleeding, and unusual bruising. Exam: 23:37 Constitutional: This is a well developed, well nourished patient who is awake, alert, mh7 and in no acute distress. Head/Face: Normocephalic, atraumatic. Eyes: Pupils equal round and reactive to light, extra-ocular motions intact. Lids and lashes normal. Conjunctiva and sclera are non-icteric and not injected. Cornea within normal limits. Periorbital areas with no swelling, redness, or edema. Neck: Trachea midline, no thyromegaly or masses palpated, and no cervical lymphadenopathy. Supple, full range of motion without nuchal rigidity, or vertebral point tenderness. No Meningismus. Chest/axilla: Normal chest wall appearance and motion. Nontender with no deformity. No lesions are appreciated. Cardiovascular: Regular rate and rhythm with a normal S1 and S2. No gallops, murmurs, or rubs. Normal PMI, no JVD. No pulse deficits. Respiratory: Lungs have equal breath sounds bilaterally, clear to auscultation and percussion. No rales, rhonchi or wheezes noted. No increased work of breathing, no retractions or nasal flaring. Abdomen/GI: Soft, non-tender, with normal bowel sounds. No distension or tympany. No guarding or rebound. No evidence of tenderness throughout. Back: No spinal tenderness. No costovertebral tenderness. Full range of motion. Skin: Warm, dry with normal turgor. Normal color with no rashes, no lesions, and no evidence of cellulitis. MS/ Extremity: Pulses equal, no cyanosis. Neurovascular intact. Full, normal range of motion. Neuro: Awake and alert, GCS 15, oriented to person, place, time, and situation. Cranial nerves II-XII grossly intact. Motor strength 5/5 in all extremities. Sensory grossly intact. Cerebellar exam normal. Normal gait. Psych: Awake, alert, with orientation to person, place and time. Behavior, mood, and affect are within normal limits. Vital Signs: 21:58 BP 123 / 89; Pulse 74; Resp 16; Temp 98.3; Pulse Ox 100% ; Weight 72.57 kg; Height 5 vg1 ft. 4 in. (162.56 cm); Pain 5/10; 21:58 Body Mass Index 27.46 (72.57 kg, 162.56 cm) vg1 [place] Coma Score: 11/02 01:32 Eye Response: spontaneous(4). Verbal Response: oriented(5). Motor Response: obeys [facility] commands(6). Total: 15. MDM: 01:32 Differential diagnosis: cluster headache, intracerebral hemorrhage, migraine, tension mh7 headache. Data reviewed: vital signs, nurses notes, lab test result(s), urinalysis, UPT: negative radiologic studies, CT scan. Data interpreted: Pulse oximetry: on room air is 100 %. Interpretation: normal. Counseling: I had a detailed discussion with the patient and/or guardian regarding: the historical points, exam findings, and any diagnostic results supporting the discharge/admit diagnosis, lab results, radiology results, the need for outpatient follow up, to return to the emergency department if symptoms worsen or persist or if there are any questions or concerns that arise at home. Response to treatment: the patient's symptoms have resolved after treatment, the patient's blood pressure is in an acceptable range, mental status has returned to baseline, the patient no longer shows bradycardia, the patient is not short of breath, the patient is not tachycardic, the patient's pain is gone, the patient's temperature has normalized, the patient is now symptom free, patient is well hydrated. Refusal of service: The patient/guardian displays adequate decision making capability and despite a detailed discussion of alternatives, benefits, risks, and consequences refuses:. ED course: , No acute distress, vital signs stable, no focal neurological deficits. No headache, nausea, vomiting, or other complaints. Discussed test results and findings the patient. She states that she is ready for discharge at this time.. 01:36 Patient medically screened. [facility] 11/01 22:07 Order name: COVID-19/FLU A+B (Document "Date of Onset" if Symptomatic); Complete Time: vg1 00:28 11/02 00:53 Order name: Urine Dipstick-Ancillary; Complete Time: 01:05 EDMS 11/01 23:30 Order name: CT Head Brain wo Cont [facility] 11/01 23:30 Order name: Saline Lock [facility] 11/01 23:30 Order name: Urine Dipstick-Ancillary (obtain specimen) [facility] 11/01 23:30 Order name: Urine Test (obtain specimen) [facility] Administered Medications: 00:17 Drug: NS 0.9% 1000 ml Route: IV; Rate: 1000 ml; Site: right hand; mr2 00:17 Drug: Reglan (metoCLOPramide) 10 mg Route: IVP; Site: right hand; mr2 00:17 Drug: Benadryl (diphenhydrAMINE) 50 mg Route: IVP; Site: right hand; mr2 00:17 Drug: Tylenol 1000 mg Route: PO; mr2 Disposition Summary: 11/02/21 01:36 Discharge Ordered Location: Home [facility] Problem: new [facility] Symptoms: have improved [facility] Condition: Stable [facility] Diagnosis - Headache [facility] Followup: [facility] - With: Private Physician - When: 1 - 2 days - Reason: Worsening of condition, Recheck today's complaints, Continuance of care, Re-evaluation by your physician Followup: [facility] - With: Geo Calle MD - When: 1 - 2 days - Reason: Worsening of condition, Recheck today's complaints Discharge Instructions: - Discharge Summary Sheet [facility] - General Headache Without Cause [facility] Forms: - Medication Reconciliation Form [facility] - Thank You Letter [facility] - Antibiotic Education [facility] - Prescription Opioid Use [facility] Signatures: Dispatcher [employer] [facility] Karla Love RN RN vg1 Tyrel Singer MD MD 7 Sylvester Wagner RN RN mr2
--- NOTE | 2021-11-02 01:37 | ER ---
Nurse's Notes [facility] Name: Keya Rene Age: 46 yrs Sex: Female : 1975 Arrival Date: 11/01/2021 Time: 21:12 Bed 15 Private MD: Diagnosis: Headache Presentation: 11/01 21:58 Chief complaint: Patient states: headache since yesterday, denies photophobia or NVD. vg1 States this headache feels different from other headaches; states with every move head began to hurt more. Denies chest pain. Coronavirus screen: Vaccine status: Patient reports receiving the 2nd dose of the covid vaccine. Ebola Screen: Patient negative for fever greater than or equal to 101.5 degrees Fahrenheit, and additional compatible Ebola Virus Disease symptoms. Initial Sepsis Screen: Does the patient meet any 2 criteria? No. Patient's initial sepsis screen is negative. Does the patient have a suspected source of infection? No. Patient's initial sepsis screen is negative. Risk Assessment: Do you want to hurt yourself or someone else? Patient reports no desire to harm self or others. Onset of symptoms was October 31, 2021. 21:58 Method Of Arrival: Ambulatory [facility] 21:58 Acuity: TYESHA 3 vg1 Triage Assessment: 22:01 Headache History: The patient has had previous headaches and this one is different than vg1 previous episodes. General: Appears in no apparent distress. uncomfortable, Behavior is calm, cooperative. Pain: Complains of pain in head Pain currently is 5 out of 10 on a pain scale. Pain began 1 day ago. Also complains of. Neuro: Level of Consciousness is awake, alert, obeys commands, Oriented to person, place, time, situation, Reports headache. 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 - Social history:: Smoking status: Patient denies any tobacco usage or history of. Screenin/06 00:00 Abuse screen: Denies threats or abuse. Denies injuries from another. Nutritional mr2 screening: No deficits noted. Tuberculosis screening: No symptoms or risk factors identified. Fall Risk None identified. Assessment: 00:00 Pain: Denies pain. mr2 Vital Signs: 12 21:58 BP 123 / 89; Pulse 74; Resp 16; Temp 98.3; Pulse Ox 100% ; Weight 72.57 kg; Height 5 vg1 ft. 4 in. (162.56 cm); Pain 5/10; 21:58 Body Mass Index 27.46 (72.57 kg, 162.56 cm) vg1 [place] Coma Score: 11/02 01:32 Eye Response: spontaneous(4). Verbal Response: oriented(5). Motor Response: obeys [facility] commands(6). Total: 15. ED Course: 11/01 21:12 Patient arrived in ED. 22:01 Triage completed. vg1 22:01 Arm band placed on. vg1 22:10 COVID swab sent to lab. Flu and/or RSV swab sent to lab. vg1 22:56 Tyrel Singer MD is Attending Physician. 7 23:04 Sylvester Wagner, RAKEL is Primary Nurse. mr2 23:55 CT Head Brain wo Cont In Process Unspecified. EDMS 11/02 00:00 Bed in low position. Side rails up X2. mr2 00:00 No provider procedures requiring assistance completed. Inserted saline lock: in left mr2 antecubital area, using aseptic technique. 01:35 Geo Calle MD is Referral Physician. 7 02:00 IV discontinued. mr2 Administered Medications: 00:17 Drug: NS 0.9% 1000 ml Route: IV; Rate: 1000 ml; Site: right hand; mr2 00:17 Drug: Reglan (metoCLOPramide) 10 mg Route: IVP; Site: right hand; mr2 00:17 Drug: Benadryl (diphenhydrAMINE) 50 mg Route: IVP; Site: right hand; mr2 00:17 Drug: Tylenol 1000 mg Route: PO; mr2 Outcome: 01:36 Discharge ordered by . 7 02:00 Discharged to home ambulatory. mr2 02:00 Condition: stable 02:00 Discharge instructions given to patient. 02:00 Patient left the ED. mr2 Signatures: Dispatcher [employer] EDMS Ivan, Karla, RN RN vg1 Tyrel Singer MD MD mh7 Dana Orozco Mike, RN RN mr2
[2021-11-02 02:17] VITALS: BP 123/89; TEMP 98.3; O2SAT 100
--- NOTE | 2021-11-02 10:33 | RAD REPORT ---
EXAM DESCRIPTION: Head Brain Wo Cont. RadLex: CT HEAD WITHOUT IV CONTRAST CLINICAL HISTORY: HEADACHE. TECHNIQUE: Axial, coronal, and sagittal images through the brain were performed in the absence of in travenous contrast. This exam was performed according to our departmental dose-optimization program w hich includes use of Automated Exposure Control, adjustment of the mA and/or kV according to patient size and/or use of iterative reconstruction technique. COMPARISON: None. FINDINGS: The brain parenchyma appears unremarkable. There is no intra-axial or extra-axial bleed se en. There is no mass or mass effect. The ventricles are unremarkable. The orbital contents appear unr emarkable. The visualized paranasal sinuses and mastoid air cells are patent. No acute fracture is identified. IMPRESSION: No acute intracranial abnormality identified. Electronically signed by: Jessie Fuentes MD 11/02/2021 12:06 AM AUTISM SPECIALIST Due to temporary technical issues with the PACS/Fluency reporting system, reports are being signed by the in house radiologist without review as a courtesy to ensure prompt reporting. The interpreting r adiologist is fully responsible for the content of the report.
== END 2021-11-02 02:00 | disposition home or self-care (01) ==
LOC: ER 21:09
DX: R51.9 Headache, unspecified (principal); I10 Essential (primary) hypertension; Z20.822 Contact with and (suspected) exposure to COVID-19
CPT/HCPCS: 81003; 0240U; 70450; 96375; 96374; 99284; J2765; J1200

== ENCOUNTER 2022-06-05 02:48 | Emergency (ER) | payer OTHER ==
[2022-06-05] MEDS ORDERED: AMLODIPINE 10 MG TAB ONE (03:33)
[2022-06-05 03:35] LABS: Absolute Lymphocytes (CBC) 2.7 K/uL (0.7-4.9); MCV 87.1 fL (80-100); MPV 7.9 fL (7.6-11.3); RBC Red Blood Cell Count 5.16 M/uL (3.86-4.86)
[2022-06-05 03:41] LABS: Protime INR 1.09
[2022-06-05 03:56] LABS: Albumin 3.8 g/dL (3.4-5.0); Bilirubin Direct 0.1 mg/dL (0-0.2); Bilirubin Total 0.8 mg/dL (0.2-1.0); Troponin High Sensitivity 4.8 pg/mL (<58.9)
[2022-06-05 03:57] LABS: Potassium 3.4 mmol/L (3.5-5.1)
--- NOTE | 2022-06-05 04:02 | ER ---
Nurse's Notes [facility] Name: Keya Rene Age: 47 yrs Sex: Female : 1975 Arrival Date: 06/05/2022 Time: 02:52 Bed 15 Private MD: Diagnosis: Essential (primary) hypertension;Headache;Hypokalemia Presentation: 06/05 02:53 Chief complaint: EMS states: they were toned out for report of pt with headache and bb high blood pressure. Pt states she has had a headache since yesterday. Coronavirus screen: At this time, the client does not indicate any symptoms associated with coronavirus-19. Ebola Screen: No symptoms or risks identified at this time. Initial Sepsis Screen: Does the patient meet any 2 criteria? No. Patient's initial sepsis screen is negative. Does the patient have a suspected source of infection? No. Patient's initial sepsis screen is negative. Risk Assessment: Do you want to hurt yourself or someone else? Patient reports no desire to harm self or others. Onset of symptoms was June 04, 2022. 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 - Social history:: Smoking status: unknown. - Family history:: not pertinent. Screenin:17 Abuse screen: Denies threats or abuse. Nutritional screening: No deficits noted. vc1 Tuberculosis screening: No symptoms or risk factors identified. Fall Risk None identified. Assessment: 03:58 General: Appears in no apparent distress. uncomfortable, Behavior is calm, cooperative, vc1 appropriate for age. Pain: Complains of pain in right occipital area and left occipital area and top of head Pain does not radiate. Pain currently is 8 out of 10 on a pain scale. Quality of pain is described as pressure. Neuro: Level of Consciousness is awake, alert, obeys commands, Oriented to person, place, time, situation, Appropriate for age. Cardiovascular: Capillary refill < 3 seconds Patient's skin is warm and dry. Cardiovascular: Denies chest pain, shortness of breath. Respiratory: Airway is patent Respiratory effort is even, unlabored, Respiratory pattern is regular, symmetrical. GI: No signs and/or symptoms were reported involving the gastrointestinal system. : No signs and/or symptoms were reported regarding the genitourinary system. EENT: No signs and/or symptoms were reported regarding the EENT system. Derm: No signs and/or symptoms reported regarding the dermatologic system. Vital Signs: 02:53 BP 153 / 115; Pulse 66; Resp 16 S; Temp 98.2(O); Pulse Ox 99% on R/A; Weight 81.65 kg bb (R); Height 5 ft. 4 in. (162.56 cm) (R); Pain 10/10; 03:57 BP 158 / 111; Pulse 64; Resp 15; Pulse Ox 98% ; vc1 02:53 Body Mass Index 30.90 (81.65 kg, 162.56 cm) bb [place] Coma Score: 03:57 Eye Response: spontaneous(4). Verbal Response: oriented(5). Motor Response: obeys juli commands(6). Total: 15. ED Course: 02:52 Patient arrived in ED. bb 02:55 Triage completed. bb 02:55 Arm band placed on Patient placed in an exam room, on a stretcher, on pulse oximetry. bb 03:01 Sam Tenorio MD is Attending Physician. juli 03:14 Melanie Lai, RN is Primary Nurse. vc1 03:33 EKG done, by ED staff, reviewed by Sam Tenorio MD. mh5 03:34 Patient has correct armband on for positive identification. Bed in low position. Call mh5 light in reach. Side rails up X2. Security at bedside. Warm blanket given. quality assurance monitor on. Pulse ox on. NIBP on. 03:48 XRAY Chest (1 view) In Process Unspecified. EDMS 03:52 CT Head Brain wo Cont In Process Unspecified. EDMS 04:01 Jaguar Frankel MD is Referral Physician. juli 04:17 No provider procedures requiring assistance completed. IV discontinued, intact, vc1 bleeding controlled, No redness/swelling at site. Pressure dressing applied. Administered Medications: 03:28 Drug: Norvasc (amlodipine) 10 mg Route: PO; vc1 04:16 Follow up: Response: No adverse reaction; Marked relief of symptoms vc1 04:15 Drug: Potassium Effervescent Tablet 25 mEq Route: PO; vc1 04:16 Follow up: Response: No adverse reaction; Medication administered at discharge. vc1 Medication: 04:17 VIS not applicable for this client. vc1 Outcome: 04:02 Discharge ordered by MD. bustos 04:17 Discharged to home ambulatory. vc1 04:17 Condition: good 04:17 Discharge instructions given to patient, Instructed on discharge instructions, follow up and referral plans. medication usage, Demonstrated understanding of instructions, follow-up care, medications, Prescriptions given X 3. 04:17 Patient left the ED. vc1 Signatures: Dispatcher [employer] EDSam Hi MD MD cha Ballard, Brenda, Paz Davis RN [facility] Melanie Lai RN RN vc1
--- NOTE | 2022-06-05 04:03 | EDPHYS ---
Physician Documentation [facility] Name: Keya Rene Age: 47 yrs Sex: Female : 1975 Arrival Date: 06/05/2022 Time: 02:52 Bed 15 Private MD: ED Physician Sam Tenorio HPI: 06/05 03:54 This 47 yrs old Black Female presents to ER via EMS with complaints of Blood Pressure juli Problem, Headache. 03:54 The patient complains of pain to the top of head, forehead, left frontal area, left juli side of the back of head, left occipital area, left base of the skull, right frontal area, right side of the back of head, right occipital area and right base of the skull. The patient describes the headache as aching, constant. Onset: The symptoms/episode began/occurred just prior to arrival, yesterday. Associated signs and symptoms: Pertinent positives: dizziness. Severity of symptoms: At its worst the pain was mild, in the emergency department the pain is unchanged. Headache History: The patient has had previous headaches and this one is similar to previous episodes. The symptoms are alleviated by nothing. the symptoms are aggravated by nothing. The patient has not experienced similar symptoms in the past. 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 - Social history:: Smoking status: unknown. - Family history:: not pertinent. ROS: 03:54 Constitutional: Negative for fever, chills, and weight loss, Eyes: Negative for injury, juli pain, redness, and discharge, ENT: Negative for injury, pain, and discharge, Neck: Negative for injury, pain, and swelling, Cardiovascular: Negative for chest pain, palpitations, and edema, Respiratory: Negative for shortness of breath, cough, wheezing, and pleuritic chest pain, Abdomen/GI: Negative for abdominal pain, nausea, vomiting, diarrhea, and constipation, Back: Negative for injury and pain, : Negative for injury, bleeding, discharge, and swelling, MS/Extremity: Negative for injury and deformity, Skin: Negative for injury, rash, and discoloration, Neuro: Negative for headache, weakness, numbness, tingling, and seizure, Psych: Negative for depression, anxiety, suicide ideation, homicidal ideation, and hallucinations, Allergy/Immunology: Negative for hives, rash, and allergies, Endocrine: Negative for neck swelling, polydipsia, polyuria, polyphagia, and marked weight changes, Hematologic/Lymphatic: Negative for swollen nodes, abnormal bleeding, and unusual bruising. Exam: 03:54 Constitutional: This is a well developed, well nourished patient who is awake, alert, juli and in no acute distress. Head/Face: Normocephalic, atraumatic. Eyes: Pupils equal round and reactive to light, extra-ocular motions intact. Lids and lashes normal. Conjunctiva and sclera are non-icteric and not injected. Cornea within normal limits. Periorbital areas with no swelling, redness, or edema. ENT: Nares patent. No nasal discharge, no septal abnormalities noted. Tympanic membranes are normal and external auditory canals are clear. Oropharynx with no redness, swelling, or masses, exudates, or evidence of obstruction, uvula midline. Mucous membranes moist. Neck: Trachea midline, no thyromegaly or masses palpated, and no cervical lymphadenopathy. Supple, full range of motion without nuchal rigidity, or vertebral point tenderness. No Meningismus. Chest/axilla: Normal chest wall appearance and motion. Nontender with no deformity. No lesions are appreciated. Cardiovascular: Regular rate and rhythm with a normal S1 and S2. No gallops, murmurs, or rubs. Normal PMI, no JVD. No pulse deficits. Respiratory: Lungs have equal breath sounds bilaterally, clear to auscultation and percussion. No rales, rhonchi or wheezes noted. No increased work of breathing, no retractions or nasal flaring. Abdomen/GI: Soft, non-tender, with normal bowel sounds. No distension or tympany. No guarding or rebound. No evidence of tenderness throughout. Back: No spinal tenderness. No costovertebral tenderness. Full range of motion. Pelvic Exam: Normal external genitalia. Speculum exam with closed cervical os, no discharge or bleeding noted. Bimanual exam with normal adnexa, no adnexal or cervical motion tenderness. Normal uterus. Female : Normal external genitalia. Skin: Warm, dry with normal turgor. Normal color with no rashes, no lesions, and no evidence of cellulitis. MS/ Extremity: Pulses equal, no cyanosis. Neurovascular intact. Full, normal range of motion. Neuro: Awake and alert, GCS 15, oriented to person, place, time, and situation. Cranial nerves II-XII grossly intact. Motor strength 5/5 in all extremities. Sensory grossly intact. Cerebellar exam normal. Normal gait. Psych: Awake, alert, with orientation to person, place and time. Behavior, mood, and affect are within normal limits. 03:54 ECG was reviewed by the Attending Physician. Vital Signs: 02:53 BP 153 / 115; Pulse 66; Resp 16 S; Temp 98.2(O); Pulse Ox 99% on R/A; Weight 81.65 kg bb (R); Height 5 ft. 4 in. (162.56 cm) (R); Pain 10/10; 03:57 BP 158 / 111; Pulse 64; Resp 15; Pulse Ox 98% ; vc1 02:53 Body Mass Index 30.90 (81.65 kg, 162.56 cm) bb [place] Coma Score: 03:57 Eye Response: spontaneous(4). Verbal Response: oriented(5). Motor Response: obeys juli commands(6). Total: 15. MDM: 03:01 Patient medically screened. juli 03:57 Differential diagnosis: cluster headache, hypertensive headache, hyponatremia, juli migraine, neoplasm, subdural hematoma, temporal arteritis, tension headache, traumatic injuries, trigeminal neuralgia, vasomotor headache. Data reviewed: vital signs, nurses notes, EMS record, lab test result(s), EKG, radiologic studies, CT scan, plain films. Data interpreted: site monitor: rate is 66 beats/min, rhythm is regular, Pulse oximetry: on room air. Test interpretation: by ED physician or midlevel provider: ECG, plain radiologic studies. Counseling: I had a detailed discussion with the patient and/or guardian regarding: the historical points, exam findings, and any diagnostic results supporting the discharge/admit diagnosis, the presence of at least one elevated blood pressure reading (>120/80) during this emergency department visit, lab results. 06/05 03:03 Order name: Basic Metabolic Panel; Complete Time: 04:01 [facility] 06/05 03:03 Order name: CBC with Diff; Complete Time: 04:01 [facility] 06/05 03:03 Order name: LFT's; Complete Time: 04:01 [facility] 06/05 03:03 Order name: Magnesium; Complete Time: 04:01 [facility] 06/05 03:03 Order name: NT PRO-BNP; Complete Time: 04:01 [facility] 06/05 03:03 Order name: PT-INR; Complete Time: 04:01 [facility] 06/05 03:03 Order name: Troponin HS; Complete Time: 04:01 [facility] 06/05 03:03 Order name: XRAY Chest (1 view) [facility] 06/05 03:03 Order name: EKG; Complete Time: 03:04 [facility] 06/05 03:03 Order name: Cardiac monitoring; Complete Time: 03:33 [facility] 06/05 03:03 Order name: EKG - Nurse/Tech; Complete Time: 03:29 [facility] 06/05 03:03 Order name: CT Head Brain wo Cont [facility] 06/05 03:03 Order name: IV Saline Lock; Complete Time: 03:29 [facility] 06/05 03:03 Order name: Labs collected and sent; Complete Time: 03:29 [facility] 06/05 03:03 Order name: O2 Per Protocol; Complete Time: 03:29 [facility] 06/05 03:03 Order name: O2 Sat Monitoring; Complete Time: 03:29 [facility] EC:54 Rate is 65 beats/min. Rhythm is regular. QRS [place] is Normal. [place] interval is normal. QRS juli interval is normal. QT interval is normal. No Q waves. T waves are Normal. No ST changes noted. Clinical impression: Normal ECG and No evidence of ischemia. Interpreted by me. Reviewed by me. Administered Medications: 03:28 Drug: Norvasc (amlodipine) 10 mg Route: PO; vc1 04:16 Follow up: Response: No adverse reaction; Marked relief of symptoms vc1 04:15 Drug: Potassium Effervescent Tablet 25 mEq Route: PO; vc1 04:16 Follow up: Response: No adverse reaction; Medication administered at discharge. vc1 Disposition Summary: 06/05/22 04:02 Discharge Ordered Location: Home juli Problem: new juli Symptoms: have improved juli Condition: Stable juli Diagnosis - Essential (primary) hypertension juli - Headache juli - Hypokalemia juli Followup: juli - With: Private Physician - When: 2 - 3 days - Reason: Recheck today's complaints, Continuance of care, Re-evaluation by your physician Followup: juli - With: - When: 2 - 3 days - Reason: Recheck today's complaints, Re-evaluation by your physician Discharge Instructions: - Discharge Summary Sheet juli - Potassium Content of Foods juli - Hypertension, Adult juli - Hypertension, Adult, [id number] juli - How to Take Your Blood Pressure, [id number] juli - General Headache Without Cause, Sqha-ol-Cryp juli - Managing Your Hypertension juli Forms: - Medication Reconciliation Form juli - Thank You Letter juli - Antibiotic Education juli - Prescription Opioid Use [facility] Prescriptions: - Norvasc 10 mg Oral Tablet - take 1 tablet by ORAL route once daily; 30 tablet; Refills: 0, Product [facility] Selection Permitted - Toprol XL 25 mg Oral Tablet - take 1 tablet by ORAL route once daily; 20 tablet; Refills: 0, Product [facility] Selection Permitted - Lisinopril 10 mg Oral Tablet - take 1 tablet by ORAL route once daily; 20 tablet; Refills: 0, Product [facility] Selection Permitted Signatures: Dispatcher [employer] EDSam Hi MD MD cha Ballard, Brenda, RN RN Melanie Richardson RN RN vc1 Corrections: (The following items were deleted from the chart) 04:16 03:03 Urine Dipstick-Ancillary ordered. [facility] vc1
[2022-06-05] MEDS ORDERED: POTASSIUM 25 MEQ EFFERV TAB ONE (04:15)
[2022-06-05 04:22] VITALS: TEMP 98.2
[2022-06-05 04:24] VITALS: BP 158/111; O2SAT 98
--- NOTE | 2022-06-05 10:41 | RAD REPORT ---
EXAM DESCRIPTION: RAD - Chest Single View - 06/05/2022 3:46 am CLINICAL HISTORY: 47 years Female COUGH COMPARISON: Chest x-ray 12/29/2020. FINDINGS: Lung volumes adequate. Cardiac silhouette is unchanged. No pneumothorax. No large pleural effusion. No focal consolidation. Mild interstitial thickening. No acute bony finding. IMPRESSION: 1. No focal consolidation. 2. Mild interstitial thickening, could represent mild pulmonary edema. Electronically signed by: Mora Bravo MD 06/05/2022 5:17 AM CDT Due to temporary technical issues with the PACS/Fluency reporting system, reports are being signed by the in house radiologists without review as a courtesy to insure prompt reporting. The interpreting radiologist is fully responsible for the content of the report.
--- NOTE | 2022-06-05 12:20 | RAD REPORT ---
EXAM DESCRIPTION: CT - Head Brain Wo Cont - 06/05/2022 6:33 am CLINICAL HISTORY: HEADACHE. TECHNIQUE: Axial, coronal, and sagittal images through the brain were performed in the absence of in travenous contrast. This exam was performed according to our departmental dose-optimization program w hich includes use of Automated Exposure Control, adjustment of the mA and/or kV according to patient size and/or use of iterative reconstruction technique. COMPARISON: None. FINDINGS: The brain parenchyma appears unremarkable. There is no intra-axial or extra-axial bleed se en. There is no mass or mass effect. The ventricles are unremarkable. The orbital contents appear unr emarkable. The visualized paranasal sinuses and mastoid air cells are patent. No acute fracture is identified. IMPRESSION: No acute intracranial abnormality identified. Electronically signed by: Jessie Fuentes MD 11/02/2021 12:06 AM [employer] Due to temporary technical issues with the PACS/Fluency reporting system, reports are being signed by the in house radiologists without review as a courtesy to insure prompt reporting. The interpreting radiologist is fully responsible for the content of the report.
--- NOTE | 2022-06-07 13:51 | EKG ---
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
== END 2022-06-05 04:17 | disposition home or self-care (01) ==
LOC: ER 02:48
DX: I10 Essential (primary) hypertension (principal); E87.6 Hypokalemia
CPT/HCPCS: 36415; 70450; 71045; 80048; 80076; 83735; 83880; 84484; 85025; 85610; 93005; 99285